=== PATIENT | female | born 1995 | race Caucasian/White ===

== ENCOUNTER 2021-09-26 10:21 | Outpatient (CLI) | payer MEDICAID, SELFPAY ==
--- NOTE | 2021-09-26 10:33 | XR_ITS ---
WS: [email or web address] Left hand, 2 views, 09/26/2021 Clinical Data: M06.9 - Rheumatoid arthritis, unspecified Comparison: None. Findings: No fractures or dislocations are seen. The soft tissues are unremarkable. The joint spaces are normal No periarticular demineralization or calcifications are seen. XR/XR hand LT 2V [id number] Impression: Negative left hand.
--- NOTE | 2021-09-26 10:33 | XR_ITS ---
WS: [email or web address] Right hand, 2 views, 09/26/2021 Clinical Data: M06.9 - Rheumatoid arthritis, unspecified Comparison: None. Findings: No fractures or dislocations are seen. The soft tissues are unremarkable. The joint space s are normal No periarticular demineralization or calcifications are seen. XR/XR hand RT 2V [id number] Impression: Negative right hand.
--- NOTE | 2021-09-26 10:33 | XR_ITS ---
WS: [email or web address] Right hip, AP and frog-leg views Clinical Data: M06.9 - Rheumatoid arthritis, unspecified Comparison: None. Findings: No fractures or dislocations are seen. The hip joint is intact. The soft tissues are not remarkable. The adjacent pelvis is normal. XR/XR hip RT 2-3V wo/w pel* [id number] Impression: Negative right hip. Tonnis classification: grade 0: normal radiographs
--- NOTE | 2021-09-26 10:33 | XR_ITS ---
WS: [email or web address] Left knee, AP and lateral views, 09/26/2021 Clinical Data: M06.9 - Rheumatoid arthritis, unspecified Comparison: None. Findings: No fractures or dislocations are seen. The joint spaces are normal. The patella is intact. The soft t issues are unremarkable. XR/XR knee LT 1-2V 23082 Impression: Negative left knee. Kellgren-Yobani Classification: grade 0 (none): definite absence of x-ray julisa nges of osteoarthritis
--- NOTE | 2021-09-26 10:33 | XR_ITS ---
WS: [email or web address] Right knee, 2 views, 09/26/2021 Clinical Data: M06.9 - Rheumatoid arthritis, unspecified Comparison: None. Findings: No fractures or dislocations are seen. The joint spaces are normal. The patella is intact. The soft t issues are unremarkable. XR/XR knee RT 1-2V [id number] Impression: Negative right knee. Kellgren-Yobani Classification: grade 0 (none): definite absence of x-ray julisa nges of osteoarthritis
--- NOTE | 2021-09-26 10:33 | XR_ITS ---
WS: [email or web address] Left hip, AP and frog leg views, 09/26/2021 Clinical Data: M06.9 - Rheumatoid arthritis, unspecified Comparison: None. Findings: No fractures or dislocations are seen. There is an acetabular lip. The left hip shows no erosion, scl erosis, narrowing or cyst formation.. The soft tissues are not remarkable. The adjacent pelvis is nor mal. The left SI joint and pubic symphysis are unremarkable. XR/XR hip LT 2-3V wo/w pel* [id number] Impression: Minimal osteoarthritis of the left hip. Tonnis classification: grade 1: sclerosis of femoral head and acetabulum or sli ght joint space narrowing or slight lipping at joint margins
[2021-09-26 11:26] LABS: Basophils # 0.1 10^3/uL (0.0-0.1); Basophils % 0.6 %; Eosinophils # 0.4 10^3/uL (0.0-0.8); Eosinophils % 3.2 %; Hematocrit 39.7 % (37.0-47.0); Hemoglobin 12.4 g/dL (11.5-15.3); Lymphocytes % 37.1 %; Mean Corpuscular HGB Conc 31.2 g/dL (30.0-36.0); Mean Corpuscular Hemoglobin 26.4 pg (28.0-34.0); Mean Corpuscular Volume 84.6 fl (81-99); Mean Platelet Volume 10.9 fL (7.4-10.4); Monocytes # 0.5 10^3/uL (0.2-0.9); Monocytes % 4.5 %; Neutrophils # 5.89 10^3/uL (1.8-7.7); Neutrophils % 54.4 %; Nucleated Red Blood Cells % 0 %; Platelet Count 351 10^3/cmm (130-400); Red Blood Count 4.69 10^6/uL (4.1-5.3); White Blood Count 10.8 10^3/uL (4.0-10.0)
[2021-09-26 11:32] LABS: Add Urine Microscopic? YES; Bilirubin Urine Neg (Negative); Blood Urine Neg (Negative); Glucose Urine UA Norm (Normal); Ketones Urine Negative (Negative); Leukocyte Esterase Urine 2+ (Negative); Nitrate Urine Negative (Negative); Protein Urine Neg (Negative); Specific Gravity, Urine 1.005 (1.005-1.030); Urine Appearance Clear (CLEAR); Urine Color Straw (Yellow); Urobilinogen Urine Norm (Negative); pH Urine 7 (5-7)
[2021-09-26 12:06] LABS: 25 Hydroxy Vitamin D 26 ng/mL (30-100); Alanine Aminotransferase 12 U/L (0-33); Alkaline Phosphatase 75 IU/L (35-105); Anion Gap 15.9 (5-19); Aspartate Amino Transferase 14 U/L (0-32); Blood Urea Nitrogen 10 mg/dL (6-20); C Reactive Protein 18.8 mg/L (0.0-4.9); Calcium 8.8 mg/dL (8.5-10.5); Carbon Dioxide 21 mmol/L (22-29); Chloride 104 mmol/L (98-107); Ferritin 73 ng/mL (15-150); Globulin 3.5 g/dL (1.3-4.6); Glucose 91 mg/dL (65-115); Iron 40 ug/dL (37-145); Osmolality Calculated 283 mOsm/kg (285-295); Potassium 3.9 mmol/L (3.5-5.1); Sodium 137 mmol/L (136-145); Thyroid Stimulating Hormone 1.58 uIU/mL (0.27-4.20); Total Bilirubin 0.2 mg/dL (0.15-1.2); Total Protein 7.5 g/dL (6.6-8.7)
[2021-09-26 12:20] LABS: Hepatitis B Core AB, Total Non-Reactive (Nonreactive); Hepatitis B Surface Antigen Non-Reactive (Nonreactive); Hepatitis C Virus Antibody Non-Reactive (Nonreactive)
[2021-09-26 12:32] LABS: RBC Urine 0-4 /hpf (0-2)
[2021-09-26 12:33] LABS: Bacteria Urine TRACE /hpf
[2021-09-26 12:34] LABS: Add Urine Culture? No
[2021-09-26 12:44] LABS: Squamous Epithelial Cell Urine 0-4 /hpf (0-5)
[2021-09-27 16:23] LABS: Cyclic Citrullinated Peptide <16 UNITS
[2021-09-27 19:26] LABS: Erythrocyte Sedimentation Rate 29 mm/hr (0-15)
[2021-09-28 16:42] LABS: Quantiferon Mitogen >10.00 IU/mL; Quantiferon Nil 0.11 IU/mL; Quantiferon Plus TB1 <0.00 IU/mL; Quantiferon Plus TB2 <0.00 IU/mL; Quantiferon TB Gold NEGATIVE (NEGATIVE)
[2021-10-01 14:03] LABS: Immunoglobulin A 350 mg/dL (47-310)
== END 2021-09-26 10:22 | disposition home or self-care (01) ==
PROVIDERS: PCP Family Medicine; Visit Provider Internal Medicine
DX: M06.9 Rheumatoid arthritis, unspecified (principal); M19.90 Unspecified osteoarthritis, unspecified site; Z11.59 Encounter for screening for other viral diseases; Z11.1 Encounter for screening for respiratory tuberculosis; Z87.891 Personal history of nicotine dependence
CPT/HCPCS: 36415; 73120; 73502; 73560; 80053; 81001; 82306; 82728; 82784; 83516; 83540; 84443; 85025; 85651; 86140; 86200; 86431; 86480; 86704; 86803; 87340; 99204

== ENCOUNTER → 2021-10-01 12:32 | Outpatient (BNVA) | payer MEDICAID, SELFPAY | PROVIDERS: PCP Family Medicine; Visit Provider Internal Medicine | DX: M05.9 Rheumatoid arthritis with rheumatoid factor, unspecified (principal); M19.90 Unspecified osteoarthritis, unspecified site; E55.9 Vitamin D deficiency, unspecified; N39.0 Urinary tract infection, site not specified | CPT/HCPCS: 99214 ==

== ENCOUNTER 2022-01-02 10:32 | Outpatient (CLI) | payer MEDICAID, SELFPAY ==
--- NOTE | 2022-01-02 10:37 | XR_ITS ---
WS: [email or web address] Right foot, 3 views, 01/02/2022 Clinical Data: RIGHT FOOT PAIN Comparison: None. Findings: No fractures or dislocations are seen. No bone destruction or erosion is noted. The joint spaces and soft tissues are normal. There is a small plantar spur. XR/XR foot RT min 3V* [id number] Impression: Negative right foot.
== END 2022-01-02 10:33 | disposition home or self-care (01) ==
LOC: RAD 10:35
PROVIDERS: PCP Family Medicine; Visit Provider Family Medicine
DX: M79.671 Pain in right foot (principal)
CPT/HCPCS: 73630

== ENCOUNTER → 2022-01-14 08:10 | Outpatient (BNVA) | payer MEDICAID, SELFPAY | PROVIDERS: PCP Family Medicine; Referring Provider Family Medicine; Visit Provider Podiatrist Foot & Ankle Surgery | DX: M79.671 Pain in right foot (principal) | CPT/HCPCS: 73630 ==

== ENCOUNTER 2022-01-14 11:18 | Outpatient (CLI) | payer MEDICAID, SELFPAY | END 2022-01-14 11:19 | disposition home or self-care (01) | LOC: SPT 11:18 | PROVIDERS: PCP Family Medicine; Visit Provider Podiatrist Foot & Ankle Surgery | DX: Z46.89 Encounter for fitting and adjustment of other specified devices (principal); S92.351D Displaced fracture of fifth metatarsal bone, right foot, subsequent encounter for fracture with routine healing; X58.XXXD Exposure to other specified factors, subsequent encounter | CPT/HCPCS: 97760; L4361 ==

== ENCOUNTER → 2022-01-21 10:29 | Outpatient (BNVA) | payer MEDICAID, SELFPAY | PROVIDERS: PCP Family Medicine; Visit Provider Internal Medicine | DX: M06.9 Rheumatoid arthritis, unspecified (principal); M16.12 Unilateral primary osteoarthritis, left hip; G62.9 Polyneuropathy, unspecified; Z79.899 Other long term (current) drug therapy; Z87.891 Personal history of nicotine dependence | CPT/HCPCS: 99214 ==

== ENCOUNTER 2022-01-21 11:44 | Outpatient (CLI) | payer MEDICAID, SELFPAY ==
[2022-01-21 12:36] LABS: Basophils # 0.1 10^3/uL (0.0-0.1); Basophils % 0.5 %; Eosinophils # 0.3 10^3/uL (0.0-0.8); Eosinophils % 2.6 %; Hematocrit 40.1 % (37.0-47.0); Hemoglobin 12.3 g/dL (11.5-15.3); Lymphocytes # 4.9 10^3/uL (0.8-4.8); Mean Corpuscular HGB Conc 30.7 g/dL (30.0-36.0); Mean Corpuscular Volume 87.9 fl (81-99); Mean Platelet Volume 10.6 fL (7.4-10.4); Monocytes # 0.5 10^3/uL (0.2-0.9); Monocytes % 4.6 %; Neutrophils # 5.13 10^3/uL (1.8-7.7); Neutrophils % 46.9 %; Nucleated Red Blood Cells % 0 %; Platelet Count 357 10^3/cmm (130-400); Red Blood Count 4.56 10^6/uL (4.1-5.3); Red Cell Distribution Width 13.3 % (12.1-15.1); White Blood Count 10.9 10^3/uL (4.0-10.0)
[2022-01-21 13:06] LABS: Erythrocyte Sedimentation Rate 51 mm/hr (0-15)
[2022-01-21 13:24] LABS: Alanine Aminotransferase 13 U/L (0-33); Albumin Level 4.2 g/dL (3.5-5.2); Alkaline Phosphatase 76 IU/L (35-105); Anion Gap 13.1 (5-19); Aspartate Amino Transferase 15 U/L (0-32); Blood Urea Nitrogen 9 mg/dL (6-20); C Reactive Protein 14.6 mg/L (0.0-4.9); Calcium 9.6 mg/dL (8.5-10.5); Carbon Dioxide 25 mmol/L (22-29); Chloride 104 mmol/L (98-107); Globulin 3.6 g/dL (1.3-4.6); Glucose 89 mg/dL (65-115); Osmolality Calculated 284 mOsm/kg (285-295); Potassium 4.1 mmol/L (3.5-5.1); Sodium 138 mmol/L (136-145); Thyroid Stimulating Hormone 2.28 uIU/mL (0.27-4.20); Total Bilirubin 0.2 mg/dL (0.15-1.2); Total Protein 7.8 g/dL (6.6-8.7); Vitamin B12 279 pg/mL (232-1245)
[2022-01-21 13:46] LABS: Slide Review Slide Review Perform
== END 2022-01-21 11:45 | disposition home or self-care (01) ==
LOC: LAB 11:46
PROVIDERS: PCP Family Medicine; Visit Provider Internal Medicine
DX: G62.9 Polyneuropathy, unspecified (principal); M79.671 Pain in right foot; N39.0 Urinary tract infection, site not specified; R79.89 Other specified abnormal findings of blood chemistry
CPT/HCPCS: 80053; 82607; 84443; 85025; 85651; 86140

== ENCOUNTER → 2022-01-29 08:11 | Outpatient (BNVA) | payer MEDICAID, SELFPAY | PROVIDERS: PCP Family Medicine; Visit Provider Podiatrist Foot & Ankle Surgery | DX: M79.671 Pain in right foot (principal) | CPT/HCPCS: 73630 ==

== ENCOUNTER → 2022-02-11 08:43 | Outpatient (BNVA) | payer MEDICAID, SELFPAY | PROVIDERS: PCP Family Medicine; Referring Provider Internal Medicine; Visit Provider Anesthesiology Pain Medicine | DX: M25.551 Pain in right hip (principal); M25.552 Pain in left hip; M54.16 Radiculopathy, lumbar region; M47.816 Spondylosis without myelopathy or radiculopathy, lumbar region; M79.604 Pain in right leg; M79.605 Pain in left leg; Z87.891 Personal history of nicotine dependence | CPT/HCPCS: 99205 ==

== ENCOUNTER → 2022-02-12 14:01 | Outpatient (BNVA) | payer MEDICAID, SELFPAY | PROVIDERS: PCP Family Medicine; Visit Provider Podiatrist Foot & Ankle Surgery | DX: S99.921A Unspecified injury of right foot, initial encounter (principal); X58.XXXA Exposure to other specified factors, initial encounter | CPT/HCPCS: 73630 ==

== ENCOUNTER 2022-03-13 09:15 | Outpatient (CLI) | payer MEDICAID, SELFPAY ==
[2022-03-13 09:55] LABS: Basophils % 0.3 %; Eosinophils # 0.3 10^3/uL (0.0-0.8); Hematocrit 40.3 % (37.0-47.0); Hemoglobin 12.5 g/dL (11.5-15.3); Lymphocytes # 3.7 10^3/uL (0.8-4.8); Lymphocytes % 38.2 %; Mean Corpuscular Hemoglobin 27.3 pg (28.0-34.0); Mean Platelet Volume 9.8 fL (7.4-10.4); Monocytes # 0.5 10^3/uL (0.2-0.9); Monocytes % 5.1 %; Neutrophils # 5.12 10^3/uL (1.8-7.7); Neutrophils % 53.2 %; Nucleated Red Blood Cells % 0 %; Platelet Count 358 10^3/cmm (130-400); Red Blood Count 4.58 10^6/uL (4.1-5.3); Red Cell Distribution Width 13.5 % (12.1-15.1); White Blood Count 9.6 10^3/uL (4.0-10.0)
[2022-03-13 10:00] LABS: Erythrocyte Sedimentation Rate 21 mm/hr (0-15)
[2022-03-13 10:23] LABS: Alanine Aminotransferase 38 U/L (0-33); Albumin Level 4.1 g/dL (3.5-5.2); Alkaline Phosphatase 78 IU/L (35-105); Anion Gap 13.4 (5-19); Aspartate Amino Transferase 30 U/L (0-32); Blood Urea Nitrogen 10 mg/dL (6-20); C Reactive Protein 22.2 mg/L (0.0-4.9); Calcium 8.5 mg/dL (8.5-10.5); Carbon Dioxide 25 mmol/L (22-29); Chloride 106 mmol/L (98-107); Globulin 3.9 g/dL (1.3-4.6); Glucose 98 mg/dL (65-115); Osmolality Calculated 289 mOsm/kg (285-295); Potassium 4.4 mmol/L (3.5-5.1); Sodium 140 mmol/L (136-145); Total Bilirubin 0.4 mg/dL (0.15-1.2)
== END 2022-03-13 09:16 | disposition home or self-care (01) ==
LOC: LAB 09:17
PROVIDERS: PCP Family Medicine; Visit Provider Internal Medicine
DX: M06.9 Rheumatoid arthritis, unspecified (principal); M19.90 Unspecified osteoarthritis, unspecified site; Z79.899 Other long term (current) drug therapy
CPT/HCPCS: 36415; 80053; 85025; 85651; 86140

== ENCOUNTER → 2022-03-18 10:50 | Outpatient (BNVA) | payer MEDICAID, SELFPAY | PROVIDERS: PCP Family Medicine; Visit Provider Internal Medicine | DX: M06.9 Rheumatoid arthritis, unspecified (principal); E55.9 Vitamin D deficiency, unspecified; R74.01 Elevation of levels of liver transaminase levels; Z79.899 Other long term (current) drug therapy; Z87.891 Personal history of nicotine dependence | CPT/HCPCS: 99214 ==

== ENCOUNTER 2022-03-28 12:03 | Outpatient (CLI) | payer MEDICAID, SELFPAY ==
--- NOTE | 2022-03-28 12:22 | XR_ITS ---
WS: [email or web address] XR abdomen 1V* [id number] REASON FOR EXAM: RUQ ABDOMINAL PAIN FINDINGS: Unremarkable bowel gas pattern. No free air or retroperitoneal air. No urinary tract calculi. No mass identified. XR/XR abdomen 1V* [id number] IMPRESSION: No acute abnormality identified.
== END 2022-03-28 12:04 | disposition home or self-care (01) ==
PROVIDERS: PCP Family Medicine; Visit Provider Family Medicine
DX: R10.11 Right upper quadrant pain (principal)
CPT/HCPCS: 74018

== ENCOUNTER 2022-03-28 12:46 | Emergency (ER) | payer MEDICAID, SELFPAY ==
[2022-03-28 13:15] VITALS: BP 136/75; PULSE 76; RESP 18; TEMP 37; O2SAT 99; BMI 54.0
[2022-03-28 14:54] VITALS: BP 115/75; PULSE 82; RESP 18; O2SAT 99
--- NOTE | 2022-03-28 15:05 | US_ITS ---
WS: [email or web address] RIGHT UPPER QUADRANT ULTRASOUND HISTORY: RUQ pain, nausea COMPARISON: 02/05/2011 Liver: 20.0 cm in length. Moderately enlarged liver. Low-attenuation throughout from hepatic steatosi s. No mass. The entire liver is difficult to visualize. Portal Vein: Normal hepatopetal flow with monophasic waveform. Gallbladder: Normally distended gallbladder with no stones or wall thickening. CBD: 0.5 cm Pancreas: Normal size and echogenicity. Right kidney: 11.8 cm in length. Normal size kidney. No hydronephrosis. Indeterminate for subcentimet er, nonobstructing lower pole renal calcification. Aorta and IVC: Unremarkable abdominal aorta and IVC. No ascites. US/US gall bladder [id number] IMPRESSION: 1. Limited evaluation due to patient's body habitus. 2. No cholelithiasis identified. 3. Moderate hepatic steatosis and hepatomegaly.
--- NOTE | 2022-03-28 15:06 | ED_ITS ---
HPI - Abdominal Pain General: Chief Complaint: Abdominal Pain Stated Complaint: Right ABD Pain Time Seen by Provider: 03/28/22 14:54 Source: patient Mode of arrival: ambulatory Limitations: no limitations History of Present Illness: Patient is a 26-year-old female presents to ED today with a complaint of right upper quadrant pain over the past 3 days. Patient states pain initially began and was fairly mild and intermittent but states over that time period it has become more constant and worsening in severity. Patient tells me pain is associated with nausea but she has not had any episodes of emesis. She states she did have multiple episodes of watery diarrhea yesterday but none since. No fevers. No urinary complaints. Previous abdominal surgeries. Patient states she does have a history of gallbladder disease runs in her family. Pain does not seem to be affected by eating. Denies urinary symptoms. MD elicited complaint: abdominal pain Onset (ago): day(s) Pain Consistency: constant Location: RUQ Severity: moderate Quality: sharp Radiation: none Migration to: no migration Exacerbating factors: movement Relieving factors: nothing Associated Symptoms: Reports nausea; Denies chills, dysuria, fever(s), heartburn, hematochezia, hematuria, hematemesis, melena and vomiting Related Data: Date of Last Menstrual Period: 03/03/22 Patient : No Review of Systems Const: Denies: fever(s), chills, body aches, fatigue or malaise Card: Denies: chest pain Resp: Denies: dyspnea GI: Reports: abdominal pain and nausea; Denies: vomiting, hematemesis, heartburn, hematochezia or melena : Denies: flank pain, difficulty voiding, dysuria or hematuria Musc: Denies: neck pain, back pain, extremity pain or joint pain Skin/Breast: Denies: rash Neuro: Denies: headache(s), numbness in extremities, weakness in extremities or sensory changes PFSH ED PFSH: Family History Grandfather Cancer Grandmother Cancer Mother Hyperlipidemia Hypertension Family/Other Rheumatoid arthritis Denies family history of Diabetes Lupus Heart attack Stroke Social History Smoking and tobacco status: former smoker Second hand smoke exposure: No Alcohol intake: former History of recent travel: No Female Reproductive History: Date of last menstrual period: 03/03/22 Physical Exam Const: COMMON NORMALS: no acute distress, patient oriented x3, no limitations and alert GENERAL APPEARANCE: cooperative NUTRITIONAL APPEARANCE: obese morbidly obese (BMI of 54) ORIENTATION/CONSCIOUSNESS: Yes awake, Yes oriented to person, Yes oriented to place and Yes oriented to time HENMT: COMMON NORMALS: normocephalic and atraumatic HEAD & SCALP: normocephalic and atraumatic Resp: COMMON NORMALS: normal respiratory effort and clear to auscultation bilaterally AUSCULTATION: clear to auscultation bilaterally Cardio: COMMON NORMALS: regular rate and regular rhythm RATE: regular rate RHYTHM: regular rhythm GI: COMMON NORMALS: Normal to inspection, nondistended, normoactive bowel ozzie nds present and Soft to palpation INSPECTION: Yes normal to inspection AUSCULTATION: Yes normoactive bowel sounds PALPATION: Yes Soft to palpation, Yes Tenderness to palpation present (GI) (RUQ radiating around into flank), No Guarding due to palpation present (GI) and No Rigid due to palpation OTHER: non-surgical exam; significantly limited exam secondary to morbid obesity status : BLADDER/KIDNEY EXAM: Yes CVA tenderness (very mild R) Back/Pelvis: COMMON NORMALS: thoracic and lumbar spine normal to inspection, no thoracic nor lumbar tenderness and thoraco-lumbar ROM normal GENERAL BACK: Yes CVA tenderness (very mild R) Extremity: COMMON NORMALS: normal to inspection Neuro: ZAHRA COMA SCALE: document GCS findings [place] coma scale eye opening: Spontaneous [place] coma scale verbal response: Orientated Zahra coma scale motor response: Obey commands Zahra coma scale total score: 15 COMMON NORMALS: patient oriented x3, moves all extremities, no focal motor deficits and no sensory deficits noted SENSORIUM/ORIENTATION: Yes alert, Yes oriented to person, Yes oriented to place and Yes oriented to time Skin: COMMON NORMALS: no rashes or lesions noted GENERAL SKIN EXAM: no rashes or lesions noted Course Vital Signs: Vital signs: Vital Signs Temperature 98.6 F 03/28/22 13:15 Pulse Rate 74 03/28/22 15:40 Respiratory Rate 18 03/28/22 15:40 Blood Pressure 116/73 03/28/22 15:40 Pulse Oximetry 99 03/28/22 15:40 MDM - Abdominal Pain Medical Decision Making Patient's blood work including LFTs are unremarkable. Evaluation of her gallbladder by US is limited secondary to body habitus but nothing to suggest gallbladder etiology at this time. She does have a fatty liver. UA showing hematuria. CT obtained to rule out kidney/proximal stone for etiology of her discomfort. She was found to have a 1.2cm R renal calculus-no obstruction. Unknown whether this could be the source of her discomfort. She is not really having any urinary symptoms at this time. UA doesn't look overly suspicious for infection-will culture. We will have her follow-up with urology. We also discussed the possible need for outpatient HIDA scan. Return to ED precautions elin carvajal. Lab Data : 03/28/22 15:16 03/28/22 15:16 Labs/Radiology: Radiology Impressions Gallbladder Ultrasound 03/28/22 15:05 IMPRESSION: 1. Limited evaluation due to patient's body habitus. 2. No cholelithiasis identified. 3. Moderate hepatic steatosis and hepatomegaly. Abdomen/Pelvis CT 03/28/22 15:51 IMPRESSION: 1. 12 mm nonobstructing right renal calculus. No hydronephrosis. 2. Additional findings, as above. Laboratory Results WBC 10.1 10^3/uL (4.0-10.0) H 03/28/22 15:16 RBC 4.59 10^6/uL (4.1-5.3) 03/28/22 15:16 Hgb 12.7 g/dL (11.5-15.3) 03/28/22 15:16 Hct 39.8 % (37.0-47.0) 03/28/22 15:16 MCV 86.7 fl (81-99) 03/28/22 15:16 MCH 27.7 pg (28.0-34.0) L 03/28/22 15:16 MCHC 31.9 g/dL (30.0-36.0) 03/28/22 15:16 RDW 13.7 % (12.1-15.1) 03/28/22 15:16 Plt Count 390 10^3/cmm (130-400) 03/28/22 15:16 MPV 10.5 fL (7.4-10.4) H 03/28/22 15:16 Neut % (Auto) 51.6 % 03/28/22 15:16 Lymph % (Auto) 40.9 % 03/28/22 15:16 [place] % (Auto) 4.3 % 03/28/22 15:16 Eos % (Auto) 2.4 % 03/28/22 15:16 Baso % (Auto) 0.6 % 03/28/22 15:16 Neut # (Auto) 5.21 10^3/uL (1.8-7.7) 03/28/22 15:16 Lymph # (Auto) 4.1 10^3/uL (0.8-4.8) 03/28/22 15:16 [place] # (Auto) 0.4 10^3/uL (0.2-0.9) 03/28/22 15:16 Eos # (Auto) 0.2 10^3/uL (0.0-0.8) 03/28/22 15:16 Baso # (Auto) 0.1 10^3/uL (0.0-0.1) 03/28/22 15:16 Nucleated RBC % (auto) 0 % 03/28/22 15:16 Nucleated RBCs # 0.0 /100WBC 03/28/22 15:16 Sodium 137 mmol/L (136-145) 03/28/22 15:16 Potassium 3.9 mmol/L (3.5-5.1) 03/28/22 15:16 Chloride 102 mmol/L (98-107) 03/28/22 15:16 Carbon Dioxide 23 mmol/L (22-29) 03/28/22 15:16 Anion Gap 15.9 (5-19) 03/28/22 15:16 BUN 9 mg/dL (6-20) 03/28/22 15:16 Creatinine 0.6 mg/dL (0.5-0.9) 03/28/22 15:16 GFR Calculation 119.0 mL/min (90-130) 03/28/22 15:16 Glucose 90 mg/dL (65-115) 03/28/22 15:16 Calculated Osmolality 282 mOsm/kg (285-295) L 03/28/22 15:16 Calcium 8.9 mg/dL (8.5-10.5) 03/28/22 15:16 Total Bilirubin 0.3 mg/dL (0.15-1.2) 03/28/22 15:16 AST 17 U/L (0-32) 03/28/22 15:16 ALT 15 U/L (0-33) 03/28/22 15:16 Alkaline Phosphatase 71 IU/L (35-105) 03/28/22 15:16 Total Protein 7.7 g/dL (6.6-8.7) 03/28/22 15:16 Albumin 4.2 g/dL (3.5-5.2) 03/28/22 15:16 Globulin 3.5 g/dL (1.3-4.6) 03/28/22 15:16 Lipase 22 U/L (13-60) 03/28/22 15:16 HCG, Qual Negative (Negative) 03/28/22 15:16 Urine Color Yellow (Yellow) 03/28/22 15:16 Urine Appearance Turbid (CLEAR) 03/28/22 15:16 Urine pH 7 (5-7) 03/28/22 15:16 Ur Specific Brewer 1.010 (1.005-1.030) 03/28/22 15:16 Urine Protein Neg (Negative) 03/28/22 15:16 Urine Glucose (UA) Norm (Normal) 03/28/22 15:16 Urine Ketones Negative (Negative) 03/28/22 15:16 Urine Blood 2+ (Negative) H 03/28/22 15:16 Urine Nitrate Negative (Negative) 03/28/22 15:16 Urine Bilirubin Neg (Negative) 03/28/22 15:16 Urine Urobilinogen Norm mg/dL (Negative) 03/28/22 15:16 Ur Leukocyte Esterase Trace (Negative) H 03/28/22 15:16 Urine RBC 0-4 /hpf (0-2) H 03/28/22 15:16 Urine WBC 5-10 /hpf (0-5) H 03/28/22 15:16 Ur Squamous Epith Cells 0-4 /hpf (0-5) H 03/28/22 15:16 Amorphous Sediment Not Reportable 03/28/22 15:16 Urine Bacteria 2+ /hpf (NONE) H 03/28/22 15:16 Urine Mucus 1+ /hpf 03/28/22 15:16 Discharge Plan Discharge Patient Disposition: Home Clinical Impression: Calculus of right kidney Condition: Stable Prescriptions: New tramadol 50 mg tablet 50 mg PO Q6H PRN (Reason: pain) Qty: 14 0RF ondansetron 4 mg tablet,disintegrating 4 mg PO Q8H PRN (Reason: nausea and vomiting) Qty: 14 0RF No Action topiramate [Topamax] 25 mg tablet 25 mg PO BID 0RF tizanidine 4 mg capsule 4 mg PO BID PRN0RF fexofenadine [Loyda Allergy] 180 mg tablet 180 mg PO DAILY 0RF albuterol sulfate 90 mcg/actuation HFA aerosol inhaler 1 inh inhalation QID 0RF venlafaxine 150 mg capsule,extended release 24hr 150 mg PO DAILY 0RF hydroxychloroquine 200 mg tablet 200 mg PO BID Qty: 60 3RF cholecalciferol (vitamin D3) 1,250 mcg (50,000 unit) capsule 50,000 unit PO .qweek Qty: 14 0RF fluticasone propion-salmeterol [Advair Diskus] 500-50 mcg/dose blister with device 1 inh inhalation BID 0RF (DME) LEN ly See Rx Instructions .Route .MEDSUPPLY Qty: 1 0RF Rx Instructions: As directed methotrexate sodium 2.5 mg tablet 12.5 mg PO .qweek Qty: 30 2RF cholecalciferol (vitamin D3) 50 mcg (2,000 unit) capsule 50 mcg PO DAILY Qty: 90 0RF folic acid 1 mg tablet 1 mg PO DAILY Qty: 90 0RF Discharge Orders: Discharge ED (Routine); Ordered 03/28/22 Ordered By: Tricia Sharpe Referrals: Duncan Raza MD [Primary Care Provider] - Patient Instructions: Kidney Stones (ED) Activity Restrictions/Additional Instructions: As discussed case management should set you up with a follow-up urology appointment for further evaluation of your right kidney stone. Need to return to the emergency department for severe or uncontrollable pain, repetitive episodes of vomiting or diarrhea, fevers greater than 100.4, severe flank pain or painful urination, or any other concerns you may have. Coding Level of Care Code ED Air Bag Buffer for Grabielg Fwd Exam Comprehensive
[2022-03-28 15:36] LABS: Basophils # 0.1 10^3/uL (0.0-0.1); Basophils % 0.6 %; Eosinophils # 0.2 10^3/uL (0.0-0.8); Eosinophils % 2.4 %; Hematocrit 39.8 % (37.0-47.0); Hemoglobin 12.7 g/dL (11.5-15.3); Lymphocytes # 4.1 10^3/uL (0.8-4.8); Lymphocytes % 40.9 %; Mean Corpuscular HGB Conc 31.9 g/dL (30.0-36.0); Mean Corpuscular Hemoglobin 27.7 pg (28.0-34.0); Mean Corpuscular Volume 86.7 fl (81-99); Mean Platelet Volume 10.5 fL (7.4-10.4); Monocytes # 0.4 10^3/uL (0.2-0.9); Monocytes % 4.3 %; Neutrophils # 5.21 10^3/uL (1.8-7.7); Neutrophils % 51.6 %; Nucleated Red Blood Cells % 0 %; Platelet Count 390 10^3/cmm (130-400); Red Blood Count 4.59 10^6/uL (4.1-5.3); Red Cell Distribution Width 13.7 % (12.1-15.1); White Blood Count 10.1 10^3/uL (4.0-10.0)
[2022-03-28] MEDS: ondansetron 2 mg/ML SDV 2 mL 4 MG IVP (15:39)
[2022-03-28 15:40] VITALS: BP 116/73; PULSE 74; RESP 18; O2SAT 99
[2022-03-28] MEDS: sodium chloride 0.9% 1,000 ML 999 ML IV (15:40)
[2022-03-28 15:48] LABS: Add Urine Microscopic? YES; Bilirubin Urine Neg (Negative); Blood Urine 2+ (Negative); Glucose Urine UA Norm (Normal); Ketones Urine Negative (Negative); Leukocyte Esterase Urine Trace (Negative); Nitrate Urine Negative (Negative); Protein Urine Neg (Negative); Urine Appearance Turbid (CLEAR); Urine Color Yellow (Yellow); Urobilinogen Urine Norm (Negative); pH Urine 7 (5-7)
[2022-03-28 15:49] LABS: Add Urine Culture? Yes; Bacteria Urine 2+ /hpf; Mucus Urine 1+ /hpf; RBC Urine 0-4 /hpf (0-2); Squamous Epithelial Cell Urine 0-4 /hpf (0-5)
--- NOTE | 2022-03-28 15:51 | CTR_ITS ---
PROCEDURE INFORMATION: Exam: CT Abdomen And Pelvis Without Contrast Exam date and time: 03/28/2022 4:19 PM Age: 26 years old Clinical indication: Abdominal pain; Acute; Additional info: Ruq pain; Poss kidney stone on US; Hematuria TECHNIQUE: Imaging protocol: Computed tomography of the abdomen and pelvis without contrast. Axial, coronal and sagittal reformatted images were created and reviewed. Radiation optimization: All CT scans at this facility use at least one of these dose optimization techniques: automated exposure control; mA and/or kV adjustment per patient size (includes targeted exams where dose is matched to clinical indication); or iterative reconstruction. COMPARISON: CR XR abdomen 1V* [id number] 03/28/2022 12:27 PM RADIATION DOSE METRICS: Total DLP (mGy-cm): 2108.96 FINDINGS: Liver: Mild hepatomegaly. Mild hepatic steatosis. Gallbladder and bile ducts: No radiodense gallstones. No biliary ductal dilatation. Pancreas: Unremarkable. Spleen: Unremarkable. Adrenal glands: Normal. No mass. Kidneys and ureters: 12 mm nonobstructing right renal calculus. No hydronephrosis. Stomach and bowel: Scattered colonic diverticula without evidence of diverticulitis. No obstruction. No bowel wall thickening. No pneumatosis. Appendix: Normal. Intraperitoneal space: No free fluid. No organized fluid collection. No free air. Vasculature: Unremarkable. No aneurysm. Lymph nodes: No pathologically enlarged lymph nodes. Urinary bladder: Unremarkable as visualized. Reproductive: Unremarkable. Bones/joints: No acute osseous abnormality. Soft tissues: Small, fat containing umbilical hernia. CT/CT kidney stone [id number] IMPRESSION: 1. 12 mm nonobstructing right renal calculus. No hydronephrosis. 2. Additional findings, as above.
[2022-03-28 15:56] LABS: HCG, Serum Qual Negative (Negative)
[2022-03-28 15:58] LABS: Alanine Aminotransferase 15 U/L (0-33); Albumin Level 4.2 g/dL (3.5-5.2); Alkaline Phosphatase 71 IU/L (35-105); Aspartate Amino Transferase 17 U/L (0-32); Blood Urea Nitrogen 9 mg/dL (6-20); Calcium 8.9 mg/dL (8.5-10.5); Carbon Dioxide 23 mmol/L (22-29); Chloride 102 mmol/L (98-107); Globulin 3.5 g/dL (1.3-4.6); Glucose 90 mg/dL (65-115); Lipase 22 U/L (13-60); Osmolality Calculated 282 mOsm/kg (285-295); Sodium 137 mmol/L (136-145); Total Bilirubin 0.3 mg/dL (0.15-1.2); Total Protein 7.7 g/dL (6.6-8.7)
[2022-03-28 16:05] LABS: Anion Gap 15.9 (5-19); Potassium 3.9 mmol/L (3.5-5.1)
--- NOTE | 2022-03-29 09:49 | DCPLANNER ---
Addendum entered by Elvira Smalls 04/04/22 14:06: Patient had a follow up appointment scheduled for 04.04.22 with urology - patient did attend appointment. Original Note: manager performance had message to schedule a follow up appointment for patient with urology. manager performance sent patients information to the front office staff at urology. Patients information will be printed and reviewed. Clinic will call patient with appointment information.
== END 2022-03-28 17:51 | disposition home or self-care (01) ==
PROVIDERS: Emergency Provider Physician Assistant; PCP Family Medicine
DX: N20.0 Calculus of kidney (principal); K76.0 Fatty (change of) liver, not elsewhere classified; Z87.891 Personal history of nicotine dependence
CPT/HCPCS: 74176; 76705; 80053; 81001; 83690; 84703; 85025; 87077; 87086; 87186; 96361; 96374; 99284; J2405; J7030

== ENCOUNTER 2022-04-04 09:49 | Outpatient (CLI) | payer MEDICAID, SELFPAY ==
--- NOTE | 2022-04-04 09:59 | XR_ITS ---
WS: [email or web address] KUB, AP view, 04/04/2022 Clinical Data: Calculus of right Kidney Comparison: KUB, 03/28/2022. Findings: No abnormal intraabdominal masses are seen. There is no dilatated small bowel or evidence of obstruct ion. Bowel gas and fecal material obscure detail over the right kidney and the left kidney. There is a 1.6 cm density overlying the right kidney in the middle of the fecal material and the right 12th rib wh ich could represent a central right renal calculus. XR/XR KUB [id number] Impression: Possible right renal calculus.
== END 2022-04-04 09:50 | disposition home or self-care (01) ==
LOC: RAD 09:51
PROVIDERS: PCP Family Medicine; Visit Provider Nurse Practitioner Family
DX: N20.0 Calculus of kidney (principal); N39.0 Urinary tract infection, site not specified
CPT/HCPCS: 74018; 81003; 87077; 87086; 87186; 99203

== ENCOUNTER → 2022-04-08 09:55 | Outpatient (BNVA) | payer MEDICAID, SELFPAY | PROVIDERS: PCP Family Medicine; Visit Provider Surgery | DX: R10.11 Right upper quadrant pain (principal); K76.0 Fatty (change of) liver, not elsewhere classified | CPT/HCPCS: 99203 ==

== ENCOUNTER → 2022-04-16 12:49 | Outpatient (BNVA) | payer MEDICAID, SELFPAY | PROVIDERS: PCP Family Medicine; Visit Provider Podiatrist Foot & Ankle Surgery | DX: M21.621 Bunionette of right foot (principal); M77.51 Other enthesopathy of right foot and ankle; M79.671 Pain in right foot | CPT/HCPCS: 73630; 99213; 99214 ==

== ENCOUNTER → 2022-04-19 14:52 | Outpatient (BNVA) | payer MEDICAID, SELFPAY | PROVIDERS: PCP Family Medicine; Referring Provider Internal Medicine; Visit Provider Specialist | DX: G62.9 Polyneuropathy, unspecified (principal); G58.7 Mononeuritis multiplex; M54.2 Cervicalgia; E66.01 Morbid (severe) obesity due to excess calories; Z68.43 Body mass index [BMI] 50.0-59.9, adult; M06.9 Rheumatoid arthritis, unspecified; R26.89 Other abnormalities of gait and mobility | CPT/HCPCS: 99204 ==

== ENCOUNTER → 2022-04-22 09:36 | Outpatient (BNVA) | payer MEDICAID, SELFPAY | PROVIDERS: PCP Family Medicine; Referring Provider Internal Medicine; Visit Provider Specialist | DX: R20.0 Anesthesia of skin (principal); R20.2 Paresthesia of skin | CPT/HCPCS: 95910; 95912 ==

== ENCOUNTER 2022-04-24 12:30 | Outpatient (CLI) | payer MEDICAID, SELFPAY ==
[2022-04-24 12:57] LABS: Basophils % 0.5 %; Eosinophils # 0.4 10^3/uL (0.0-0.8); Eosinophils % 4.6 %; Hematocrit 38.1 % (37.0-47.0); Hemoglobin 12.3 g/dL (11.5-15.3); Lymphocytes # 3.8 10^3/uL (0.8-4.8); Lymphocytes % 49.1 %; Mean Corpuscular HGB Conc 32.3 g/dL (30.0-36.0); Mean Corpuscular Hemoglobin 27.5 pg (28.0-34.0); Mean Platelet Volume 10.6 fL (7.4-10.4); Monocytes # 0.4 10^3/uL (0.2-0.9); Neutrophils # 3.17 10^3/uL (1.8-7.7); Neutrophils % 40.5 %; Nucleated Red Blood Cells % 0 %; Platelet Count 341 10^3/cmm (130-400); Red Blood Count 4.48 10^6/uL (4.1-5.3); Red Cell Distribution Width 14.3 % (12.1-15.1); White Blood Count 7.8 10^3/uL (4.0-10.0)
[2022-04-24 13:43] LABS: Alanine Aminotransferase 15 U/L (0-33); Albumin Level 4.3 g/dL (3.5-5.2); Alkaline Phosphatase 65 IU/L (35-105); Anion Gap 13.7 (5-19); Aspartate Amino Transferase 16 U/L (0-32); Blood Urea Nitrogen 11 mg/dL (6-20); Calcium 9.1 mg/dL (8.5-10.5); Carbon Dioxide 24 mmol/L (22-29); Chloride 106 mmol/L (98-107); Glucose 93 mg/dL (65-115); Osmolality Calculated 289 mOsm/kg (285-295); Potassium 3.7 mmol/L (3.5-5.1); Sodium 140 mmol/L (136-145); Total Bilirubin 0.3 mg/dL (0.15-1.2); Total Protein 7.3 g/dL (6.6-8.7)
--- NOTE | 2022-04-24 14:12 | XR_ITS ---
WS: [email or web address] Exam: XR lumbar spine 2-3V* [id number] Date/Time of Exam: 04/24/2022 2:13 PM Reason For Exam: BACK PAIN, LUMBAR, WITH RADICULOPATHY, LUMBAR DISC HERNIATIO No acute fracture or dislocation. Disc spaces are preserved. Posterior elements are intact. Mild levo scoliosis. 2 calcifications are seen in the region of the right kidney and apparently represent known renal stones. XR/XR lumbar spine 2-3V* [id number] IMPRESSION: 1. Slight levoscoliosis of the lumbar spine otherwise negative study. 2. Right renal lithiasis.
== END 2022-04-24 12:31 | disposition home or self-care (01) ==
LOC: LAB 12:34
PROVIDERS: Internal Medicine; PCP Family Medicine; Visit Provider Family Medicine
DX: M51.16 Intervertebral disc disorders with radiculopathy, lumbar region (principal); M06.9 Rheumatoid arthritis, unspecified; R79.89 Other specified abnormal findings of blood chemistry
CPT/HCPCS: 72100; 80053; 85025

== ENCOUNTER 2022-05-09 09:45 | Outpatient (CLI) | payer MEDICAID, SELFPAY ==
--- NOTE | 2022-05-09 08:57 | NM_ITS ---
WS: [email or web address] NUCLEAR MEDICINE HIDA SCAN WITH GALLBLADDER EJECTION FRACTION HISTORY: ABDOMINAL PAIN RUQ COMPARISON: 03/28/2022 TECHNIQUE: The patient was intravenously injected with 7.5 mCi of TC99m Mebrofenin. Immediate imaging over the right upper quadrant was followed by 5 minute image and additional images for a total of 90 minutes. Normal uptake of radiotracer throughout the liver. Activity identified in the gallbladder at 60 minutes and much better distended at 90 minutes. Activity in the proximal small bowel was seen by 30 minutes. Good washout of the radiotracer from the liver by 60 minutes. The patient then drank 8 ounces of Ensure Plus. Ejection fraction at 90 minutes was 65%. Normal GB ej ection fraction is 35-75%. Post fatty meal symptoms: None. NM/NM hepatobiliary w phar* [id number] IMPRESSION: 1. Normal HIDA scan. 2. Normal gallbladder ejection fraction.
== END 2022-05-09 09:46 | disposition home or self-care (01) ==
LOC: RAD 09:47
PROVIDERS: PCP Family Medicine; Visit Provider Family Medicine
DX: R10.11 Right upper quadrant pain (principal)
CPT/HCPCS: 78227; A9537

== ENCOUNTER 2022-05-22 15:12 | Outpatient (RCR) | payer MEDICAID, SELFPAY | END 2022-06-16 23:59 | disposition home or self-care (01) | LOC: SPT 15:12 | PROVIDERS: PCP Family Medicine; Referring Provider Family Medicine; Visit Provider Family Medicine | DX: M54.16 Radiculopathy, lumbar region (principal) | CPT/HCPCS: 97032; 97110; 97161 ==

== ENCOUNTER → 2022-05-27 14:51 | Outpatient (BNVA) | payer MEDICAID, SELFPAY | PROVIDERS: PCP Family Medicine; Visit Provider Podiatrist Foot & Ankle Surgery | DX: M21.621 Bunionette of right foot (principal); M79.671 Pain in right foot; M77.51 Other enthesopathy of right foot and ankle | CPT/HCPCS: 20600 ==

== ENCOUNTER 2022-06-06 11:28 | Outpatient (CLI) | payer MEDICAID, SELFPAY ==
--- NOTE | 2022-06-06 11:45 | MR_ITS ---
WS: [email or web address] MRI CERVICAL SPINE NONCONTRAST HISTORY: G62.9 - Polyneuropathy, unspecified COMPARISON: None available. Technique: Multiplanar, multisequence noncontrast imaging of the cervical spine. Mild straightening of the normal cervical lordosis is probably positional or due to spasm. Normal marrow signal. No fractures. Disc spaces are well-maintained. Signal within the cervical cord is normal. Visualized posterior fossa is unremarkable. Craniocervical junction, C1 and C2 relationship, odontoid process and soft tissues are normal. C2-C3: Normal. C3-C4: Normal. C4-C5: Normal. C5-C6: Normal. C6-C7: Mild disc bulge. No stenosis or disc protrusion. C7-T1: Normal. Paraspinal soft tissue are normal. Normal bilateral cervical chain lymph nodes measure up to 9 mm in diameter. MR/MR cervical spin wo con* [id number] IMPRESSION: Normal MRI C-spine.
== END 2022-06-06 11:29 | disposition home or self-care (01) ==
PROVIDERS: PCP Family Medicine; Visit Provider Specialist
DX: G62.9 Polyneuropathy, unspecified (principal)
CPT/HCPCS: 72141

== ENCOUNTER 2022-06-17 06:00 | Outpatient (RCR) | payer MEDICAID, SELFPAY | END 2022-07-17 23:59 | disposition home or self-care (01) | LOC: SPT 06:00 | PROVIDERS: PCP Family Medicine; Referring Provider Family Medicine; Visit Provider Family Medicine | DX: M54.9 Dorsalgia, unspecified (principal); M54.16 Radiculopathy, lumbar region | CPT/HCPCS: 97032; 97110; G0283 ==

== ENCOUNTER 2022-06-17 11:51 | Outpatient (CLI) | payer MEDICAID, SELFPAY ==
--- NOTE | 2022-06-17 12:00 | XR_ITS ---
WS: [email or web address] KUB, AP view, 06/17/2022. Clinical Data: CALCULUS OF RIGHT KIDNEY Comparison: KUB, 04/04/2022. Findings: No abnormal intraabdominal masses are seen. There is no dilatated small bowel or evidence of obstruct ion. There are calcifications overlying the midportion of the right kidney. XR/XR KUB [id number] Impression: No change in probable right renal calcifications.
== END 2022-06-17 11:52 | disposition home or self-care (01) ==
LOC: RAD 11:52
PROVIDERS: PCP Family Medicine; Visit Provider Urology
DX: N39.0 Urinary tract infection, site not specified (principal); N20.0 Calculus of kidney
CPT/HCPCS: 74018; 81003; 99213

== ENCOUNTER 2022-07-08 08:07 | Outpatient (CLI) | payer MEDICAID, SELFPAY ==
[2022-07-08 08:28] LABS: Basophils % 0.4 %; Eosinophils # 0.3 10^3/uL (0.0-0.8); Eosinophils % 3.5 %; Hematocrit 39.7 % (37.0-47.0); Hemoglobin 12.4 g/dL (11.5-15.3); Lymphocytes # 3.6 10^3/uL (0.8-4.8); Lymphocytes % 42.9 %; Mean Corpuscular HGB Conc 31.2 g/dL (30.0-36.0); Mean Corpuscular Hemoglobin 27.9 pg (28.0-34.0); Mean Corpuscular Volume 89.4 fl (81-99); Mean Platelet Volume 10.6 fL (7.4-10.4); Monocytes # 0.4 10^3/uL (0.2-0.9); Neutrophils # 4.03 10^3/uL (1.8-7.7); Nucleated Red Blood Cells % 0 %; Platelet Count 325 10^3/cmm (130-400); Red Blood Count 4.44 10^6/uL (4.1-5.3); Red Cell Distribution Width 13.6 % (12.1-15.1); White Blood Count 8.4 10^3/uL (4.0-10.0)
[2022-07-08 08:33] LABS: Erythrocyte Sedimentation Rate 25 mm/hr (0-15)
[2022-07-08 08:55] LABS: Alanine Aminotransferase 16 U/L (0-33); Alkaline Phosphatase 64 U/L (35-105); Anion Gap 13.2 (5-19); Aspartate Amino Transferase 12 U/L (0-32); Blood Urea Nitrogen 13 mg/dL (6-20); C Reactive Protein 6.7 mg/L (0.0-4.9); Calcium 8.9 mg/dL (8.5-10.5); Carbon Dioxide 25 mmol/L (22-29); Chloride 105 mmol/L (98-107); Globulin 3.5 g/dL (1.3-4.6); Glomerular Filtration Rate 146.9 mL/min (90-130); Glucose 89 mg/dL (65-115); Osmolality Calculated 288 mOsm/kg (285-295); Potassium 4.2 mmol/L (3.5-5.1); Sodium 139 mmol/L (136-145); Total Bilirubin 0.2 mg/dL (0.15-1.2); Total Protein 7.5 g/dL (6.6-8.7)
== END 2022-07-08 08:08 | disposition home or self-care (01) ==
LOC: LAB 08:10
PROVIDERS: PCP Family Medicine; Visit Provider Internal Medicine
DX: M06.9 Rheumatoid arthritis, unspecified (principal); R74.01 Elevation of levels of liver transaminase levels; Z79.899 Other long term (current) drug therapy
CPT/HCPCS: 36415; 80053; 85025; 85651; 86140

== ENCOUNTER → 2022-07-10 08:36 | Outpatient (BNVA) | payer MEDICAID, SELFPAY | PROVIDERS: PCP Family Medicine; Visit Provider Surgery | DX: R19.7 Diarrhea, unspecified (principal); K76.0 Fatty (change of) liver, not elsewhere classified; M06.9 Rheumatoid arthritis, unspecified | CPT/HCPCS: 99213 ==

== ENCOUNTER 2022-07-21 16:02 | Emergency (ER) | payer MEDICAID, SELFPAY ==
[2022-07-21 16:25] VITALS: BP 155/96; PULSE 66; RESP 18; TEMP 36.6; O2SAT 98; BMI 50.4
[2022-07-21] MEDS: lidocaine 2% viscous 15 mL UDC 2 ML MUCOUS MEM (19:37)
--- NOTE | 2022-07-21 19:53 | ED_ITS ---
HPI - Dental/Oral General: Chief complaint: Dental/Oral Stated complaint: dry socket Time Seen by Provider: 07/21/22 18:55 History of Present Illness: 26 yo female patient presents to ER with right sided upper and lower dental pain post extration on Pt states the pain has not improved and she needs some relief. Pt denies any fever. Pt states it hurts to chew. Pt denies any difficulty swallowing. pt is currently on antibitibiotics and states she has been doing salt rinses as advised Associated symptoms: Denies ear or mastoid pain, fever(s), odynophagia or tongue swelling Review of Systems Const: Denies: fever(s), chills, body aches, change in appetite, change in weight, fatigue, malaise or diaphoresis Eyes: Denies: change in vision, blurry vision, blind spots, photophobia, eye discomfort, eye discharge, eye redness, floaters or seeing flashes ENMT: Denies: throat pain, uvular edema, enlarged tonsils, odynophagia, hoarseness, mouth pain, swelling of lips/tongue, oral sores, bleeding gums, dry mouth, ear or mastoid pain, ear discharge, change in hearing, tinnitus, disequilibrium, nasal discharge, nasal congestion, post nasal drip or sinus pain Card: Denies: chest pain, palpitations, irregular heart rhythm, edema, swelling of feet/ankles, lightheadedness, syncope, pre-syncope, dyspnea on exertion, orthopnea, leg pain with exertion or acrocyanosis Resp: Denies: dyspnea, productive cough, non-productive cough, wheezing, str idor, pain on inspiration, change in phlegm color, hemoptysis or chest congestion GI: Denies: abdominal pain, nausea, vomiting, hematemesis, dysphagia, diarrhea, constipation, GI cramping, change in bowel habits or rectal pain : Denies: flank pain, difficulty voiding, dysuria, urinary frequency, urinary urgency, urinary hesitancy or hematuria Musc: Denies: neck pain, back pain, extremity pain, extremity swelling, joint pain, joint swelling, joint redness, joint warmth or deformity Skin/Breast: Denies: rash, pruritus, erythema, sores, new lesions, changes in skin color or dry skin Neuro: Denies: headache(s), numbness in extremities, weakness in extremities, sensory changes, lack of coordination, difficulty walking, frequent falls, dizziness, vertigo, confusion, behavioral changes, Slurred speech present, difficulty communicating thoughts or seizure-like activity Psych: Denies: anxiety, depression, suicidal ideation or homicidal ideation Endo: Denies: polyuria, polydipsia, tired all the time, cold intolerance, excessive sweating, flushing, hot flashes or heat intolerance Constantino/Lymph: Denies: easy bruising, easy bleeding, petechiae, purpura, enlarged lymph nodes or tender lymph nodes All/Imm: Denies: urticaria, throat swelling, tongue swelling, facial swelling, acute wheezing or itchy eyes PFSH ED PFSH: Medical History Recurrent UTI Surgical History History of tonsillectomy and adenoidectomy Family History Grandfather Cancer Grandmother Cancer Mother Hyperlipidemia Hypertension Family/Other Rheumatoid arthritis Denies family history of Diabetes Lupus Heart attack Stroke Social History Smoking and tobacco status: former smoker Second hand smoke exposure: No Alcohol intake: never Household members: spouse Marital status: Current occupational status: employed History of recent travel: No Female Reproductive History: Date of last menstrual period: 03/03/22 Physical Exam Const: COMMON NORMALS: no acute distress, average body habitus, patient oriented x3, no limitations, healthy appearing, alert and well nourished HENMT: MOUTH: Normal oral and palatal mucosa present, lip normal, tongue normal and Normal salivary glands and ducts present; no muffled voice, tongue not abnormal, no trismus and no restricted motion TEETH & GINGIVA: Yes other (there is upper and lower tooth extractions that are without evidence of inf) THROAT: no uvular edema Resp: COMMON NORMALS: normal respiratory effort, No retractions and No use of accessory muscles Cardio: COMMON NORMALS: regular rate and regular rhythm RATE: regular rate RHYTHM: regular rhythm Neuro: COMMON NORMALS: patient oriented x3 SENSORIUM/ORIENTATION: Yes alert Course Vital Signs: Vital signs: Vital Signs Temperature 98 F 09/04/22 16:25 Pulse Rate 66 07/21/22 16:25 Respiratory Rate 18 07/21/22 16:25 Blood Pressure 155/96 07/21/22 16:25 Pulse Oximetry 98 07/21/22 16:25 Oxygen Delivery Me thod 07/21/22 16:25 MDM - Dental/Oral Medical Decision Making Patient is well appearing non toxic and in no acute distress. 26 yo female patient presents to ER with right sided upper and lower dental pain post extration on Pt states the pain has not improved and she needs some relief. Pt denies any fever. Pt states it hurts to chew. Pt denies any difficulty swallowing. pt is currently on antibitibiotics and states she has been doing salt rinses as advised There is no evidence of dental infection or abscess extractions appear to be healing without issue. I did apply viscous lidocaine and gauze packing to extraction sites and this did give patient relief. Pt to f/u with dentist next week Differential Diagnosis Likely gingival abscess, dental caries and dental abscess Discharge Plan Discharge Patient Disposition: Home Clinical Impression: Pain, dental Condition: Stable Prescriptions: New Lidocaine Viscous 2 % solution 1 applic mucous membrane BID Qty: 3 0RF No Action topiramate [Topamax] 25 mg tablet 25 mg PO BID tizanidine 4 mg capsule 4 mg PO BID PRN fexofenadine [Loyda Allergy] 180 mg tablet 180 mg PO DAILY albuterol sulfate 90 mcg/actuation HFA aerosol inhaler 1 inh inhalation QID venlafaxine 150 mg capsule,extended release 24hr 150 mg PO DAILY cholecalciferol (vitamin D3) 1,250 mcg (50,000 unit) capsule 50,000 unit PO .qweek Qty: 14 0RF fluticasone propion-salmeterol [Advair Diskus] 500-50 mcg/dose blister with device 1 inh inhalation BID diclofenac-kinesiology tape 1.5 % kit See Rx Instructions topical .COMPLEX Rx Instructions: apply 40 drps to single knee 4 times daily; tape as directed topical methotrexate sodium 2.5 mg tablet 15 mg PO .qweek Qty: 30 2RF diclofenac sodium [Voltaren Arthritis Pain] 1 % gel 4 g topical QID Qty: 100 3RF Rx Instructions: apply to single knee, ankle, foot; for foot includes sole/toes/top of foot folic acid 1 mg tablet 2 mg PO DAILY Qty: 180 0RF doxycycline hyclate 100 mg capsule 100 mg PO BID Qty: 60 2RF peg 3350-electrolytes [Golytely] [id number] -5.86 gram recon soln 240 ml PO Q10M Qty: 4000 0RF Rx Instructions: until fecal effluent is clear Discharge Orders: Discharge ED (Routine); Ordered 07/21/22 Ordered By: Lisa Barksdale Referrals: Duncan Raza MD [Primary Care Provider] - Discharge Diet: Advance as tolerated Discharge Activity: Increase activity as tolerated Patient Instructions: Opioid Safety Activity Restrictions/Additional Instructions: Use medications as directed Continue with salt rinses Follow up with dentist Coding Level of Care Code ED Decision Support Analyst for Brittany Barragan
[2022-07-21 20:09] VITALS: BP 155/96; PULSE 66; RESP 18; TEMP 36.6; O2SAT 98
== END 2022-07-21 20:10 | disposition home or self-care (01) ==
PROVIDERS: Emergency Provider Registered Nurse; PCP Family Medicine
DX: K08.89 Other specified disorders of teeth and supporting structures (principal); Z87.891 Personal history of nicotine dependence
CPT/HCPCS: 99283

== ENCOUNTER 2022-07-30 | Outpatient (RCR) | payer MEDICAID, SELFPAY | END 2022-08-16 23:59 | disposition home or self-care (01) | LOC: SPT | PROVIDERS: PCP Family Medicine; Referring Provider Family Medicine; Visit Provider Family Medicine | DX: M54.50 Low back pain, unspecified (principal); G89.29 Other chronic pain; M54.16 Radiculopathy, lumbar region | CPT/HCPCS: 97110 ==

== ENCOUNTER 2022-08-09 09:31 | Emergency (ER) | payer MEDICAID, SELFPAY ==
[2022-08-09 09:45] VITALS: BMI 51.7
[2022-08-09 09:47] VITALS: BP 129/84; PULSE 69; RESP 18; TEMP 36.4; O2SAT 99
--- NOTE | 2022-08-09 10:01 | ED_ITS ---
Documented by User: Bonita Wiley PA-C 08/09/22 11:53 HPI - Abdominal Pain General: Chief Complaint: Abdominal Pain Stated Complaint: right side pain Time Seen by Provider: 08/09/22 09:58 Source: patient Mode of arrival: ambulatory Limitations: no limitations History of Present Illness: 27-year-old female presents to the ER today for abdominal pain that began about 7:30 this morning. Patient reports it was a sudden onset and it is a sharp constant pain. Patient reports the pain is worse with movement. She reports this pain is in the right lower quadrant. She reports walking makes it worse. Patient reports nausea associated with the pain. She reports normal bowel movements. Patient reports last menstrual period was on 9 2. Patient does not have a history of a tubal however reports her had a vasectomy. Patient reports regular periods and bowel move ments in the last little bit. Patient reports the nausea just darted with the pain. She denies any other symptoms at this time. Related Data: Date of Last Menstrual Period: 07/19/22 Review of Systems General: Reports: 10 or more systems reviewed and unremarkable except in HPI and below PFSH ED PFSH: Medical History Recurrent UTI Surgical History History of tonsillectomy and adenoidectomy Family History Grandfather Cancer Grandmother Cancer Mother Hyperlipidemia Hypertension Family/Other Rheumatoid arthritis Denies family history of Diabetes Lupus Heart attack Stroke Social History Smoking and tobacco status: former smoker Second hand smoke exposure: No Alcohol intake: never Household members: spouse Marital status: Current occupational status: employed History of recent travel: No Female Reproductive History: Date of last menstrual period: 07/19/22 Physical Exam Const: COMMON NORMALS: average body habitus, patient oriented x3, no limitations, healthy appearing, alert and well nourished OTHER: appears uncomfortable HENMT: COMMON NORMALS: normocephalic, atraumatic, external ears normal, Normal external nose present and Normal nasal mucous membranes and turbinates present HEAD & SCALP: normocephalic and atraumatic NOSE: Normal external nose present and Normal nasal mucous membranes and turbinates present EXTERNAL EAR: Yes external ears normal Eye: COMMON NORMALS: conjunctivae normal CONJUNCTIVA: Yes conjunctivae normal Neck/C-Spine: COMMON NORMALS: full ROM and no lymphadenopathy Resp: COMMON NORMALS: normal respiratory effort, No retractions and clear to auscultation bilaterally AUSCULTATION: clear to auscultation bilaterally Cardio: COMMON NORMALS: regular rate, regular rhythm and No murmurs present (Cardio) RATE: regular rate RHYTHM: regular rhythm GI: COMMON NORMALS: Normal to inspection, nondistended, normoactive bowel sounds present and Soft to palpation PALPATION: Yes Soft to palpation, Yes Tenderness to palpation present (GI) Details: RLQ and Yes Guarding due to pal pation present (GI) OTHER: positive psoas and obturator signs, positive foot tap, no rebound tenderness Extremity: COMMON NORMALS: normal to inspection and full ROM Neuro: COMMON NORMALS: patient oriented x3 SENSORIUM/ORIENTATION: Yes alert Psych: COMMON NORMALS: mental status grossly normal, Normal thought process present and cooperative THOUGHT PROCESS: Normal thought process present Skin: COMMON NORMALS: no rashes or lesions noted and no wounds GENERAL SKIN EXAM: no rashes or lesions noted Course ED course: 27-year-old female presents to the ER today for right lower quadrant pain that began about 730 this morning. Patient reports this pain is constant and sharp and is worse with movement. She reports her last menstrual period was on 9 1 and patient's had a vasectomy. She reports her cycles are typically regular and not painful. Patient reports nausea associate with this pain. Denies any recent illness. Denies any change in bowel or bladder habits. Patient reports she had normal bowel movement this morning. We will go ahead and start with lab work and a CT of the abdomen pelvis with contrast. Vital Signs: Vital signs: Vital Signs Temperature 97.5 F L 08/09/22 09:47 Pulse Rate 56 L 08/09/22 11:55 Respiratory Rate 18 08/09/22 11:55 Blood Pressure 131/68 08/09/22 11:55 Pulse Oximetry 96 08/09/22 11:55 Oxygen Delivery Me thod 08/09/22 11:55 MDM - Abdominal Pain Medical Decision Making 27-year-old female presents to the ER today for right lower quadrant pain that began about 7:30 this morning. Patient reports this pain is constant and sharp and is worse with movement. She reports her last menstrual period was on 9 1 and patient's had a vasectomy. She reports her cycles are typically regular and not painful. Patient reports nausea associate with this pain. Denies any recent illness. Denies any change in bowel or bladder habits. Patient reports she had normal bowel movement this morning. We will go ahead and start with lab work and a CT of the abdomen pelvis with contrast. Lab work is unremarkable. CT is unremarkable, appendix is visualized and normal. Patient has some prominent lymph nodes in the right lower quadrant likely indicating a mesenteric adenitis. I discussed findings with patient. Discussed this is likely viral. Recommended anti-inflammatories, rest, and warm heat for symptomatic relief. Patient should follow-up with PCP in 3 to 5 days if no improvement. Return to the ER with any new or worsening symptoms. Patient verbalized understanding was in agreement with the treatment plan. Lab Data : 08/09/22 10:30 08/09/22 10:30 Labs/Radiology: Radiology Impressions Abdomen/Pelvis CT 08/09/22 10:15 IMPRESSION: 1. Normal appendix in RIGHT lower quadrant. No evidence of acute appendicitis. 2. A few prominent lymph nodes in the RIGHT lower quadrant can be seen with mesenteric adenitis. 3. No obstructing renal or ureteral calculi. 4. Nonobstructing RIGHT calyceal tip calculi unchanged from previous. 5. Diffuse fatty infiltration liver. Laboratory Results WBC 10.6 10^3/uL (4.0-10.0) H 08/09/22 10:30 RBC 4.16 10^6/uL (4.1-5.3) 08/09/22 10:30 Hgb 11.9 g/dL (11.5-15.3) 08/09/22 10:30 Hct 38.8 % (37.0-47.0) 08/09/22 10:30 MCV 93.3 fl (81-99) 08/09/22 10:30 MCH 28.6 pg (28.0-34.0) 08/09/22 10:30 MCHC 30.7 g/dL (30.0-36.0) 08/09/22 10:30 RDW 14.4 % (12.1-15.1) 08/09/22 10:30 Plt Count 350 10^3/cmm (130-400) 08/09/22 10:30 MPV 10.4 fL (7.4-10.4) 08/09/22 10:30 Neut % (Auto) 53.1 % 08/09/22 10:30 Lymph % (Auto) 37.5 % 08/09/22 10:30 Throckmorton % (Auto) 5.7 % 08/09/22 10:30 Eos % (Auto) 2.7 % 08/09/22 10:30 Baso % (Auto) 0.6 % 08/09/22 10:30 Neut # (Auto) 5.62 10^3/uL (1.8-7.7) 08/09/22 10:30 Lymph # (Auto) 4.0 10^3/uL (0.8-4.8) 08/09/22 10:30 Throckmorton # (Auto) 0.6 10^3/uL (0.2-0.9) 08/09/22 10:30 Eos # (Auto) 0.3 10^3/uL (0.0-0.8) 08/09/22 10:30 Baso # (Auto) 0.1 10^3/uL (0.0-0.1) 08/09/22 10:30 Nucleated RBC % (auto) 0 % 08/09/22 10:30 Nucleated RBCs # 0.0 /100WBC 08/09/22 10:30 Sodium 140 mmol/L (136-145) 08/09/22 10:30 Potassium 4.0 mmol/L (3.5-5.1) 08/09/22 10:30 Chloride 105 mmol/L (98-107) 08/09/22 10:30 Carbon Dioxide 25 mmol/L (22-29) 08/09/22 10:30 Anion Gap 14.0 (5-19) 08/09/22 10:30 BUN 12 mg/dL (6-20) 08/09/22 10:30 Creatinine 0.7 mg/dL (0.5-0.9) 08/09/22 10:30 GFR Calculation 98.9 mL/min (90-130) 08/09/22 10:30 Glucose 93 mg/dL (65-115) 08/09/22 10:30 Calculated Osmolality 289 mOsm/kg (285-295) 08/09/22 10:30 Calcium 9.1 mg/dL (8.5-10.5) 08/09/22 10:30 Total Bilirubin 0.3 mg/dL (0.15-1.2) 08/09/22 10:30 AST 17 U/L (0-32) 08/09/22 10:30 ALT 29 U/L (0-33) 08/09/22 10:30 Alkaline Phosphatase 69 U/L (35-105) 08/09/22 10:30 Total Protein 7.2 g/dL (6.6-8.7) 08/09/22 10:30 Albumin 3.8 g/dL (3.5-5.2) 08/09/22 10:30 Globulin 3.4 g/dL (1.3-4.6) 08/09/22 10:30 HCG, Qual Negative (Negative) 08/09/22 10:01 Urine Color Yellow (Yellow) 08/09/22 10:01 Urine Appearance Clear (CLEAR) 08/09/22 10:01 Urine pH 7 (5-7) 08/09/22 10:01 Ur Specific Gilman 1.015 (1.005-1.030) 08/09/22 10:01 Urine Protein Neg (Negative) 08/09/22 10:01 Urine Glucose (UA) Norm (Normal) 08/09/22 10:01 Urine Ketones Negative (Negative) 08/09/22 10:01 Urine Blood Neg (Negative) 08/09/22 10:01 Urine Nitrate Negative (Negative) 08/09/22 10:01 Urine Bilirubin Neg (Negative) 08/09/22 10:01 Urine Urobilinogen Neg mg/dL (Negative) 08/09/22 10:01 Ur Leukocyte Esterase Trace (Negative) H 08/09/22 10:01 Urine RBC None /hpf (0-2) 08/09/22 10:01 Urine WBC None /hpf (0-5) 08/09/22 10:01 Ur Squamous Epith Cells 0-4 /hpf (0-5) H 08/09/22 10:01 Amorphous Sediment Not Reportable 08/09/22 10:01 Urine Bacteria None /hpf (NONE) 08/09/22 10:01 Urine Mucus 1+ /hpf 08/09/22 10:01 Critical Care Time Critical Care Time: Critical Care Time: No Discharge Plan Discharge Patient Disposition: Home Clinical Impression: Abdominal pain, RLQ Condition: Stable Prescriptions: No Action topiramate [Topamax] 25 mg tablet 25 mg PO BID fexofenadine [Loyda Allergy] 180 mg tablet 180 mg PO DAILY albuterol sulfate 90 mcg/actuation HFA aerosol inhaler 1 - 2 puff inhalation Q4H PRN (Reason: Shortness Of Breath) venlafaxine 150 mg capsule,extended release 24hr 150 mg PO QAM fluticasone propion-salmeterol [Advair Diskus] 500-50 mcg/dose blister with device 1 inh inhalation BID doxycycline hyclate 100 mg capsule 100 mg PO BID Qty: 60 2RF peg 3350-electrolytes [Golytely] 236-22.74-6.74 -5.86 gram recon soln 240 ml PO Q10M Qty: 4000 0RF Rx Instructions: until fecal effluent is clear tizanidine 4 mg tablet 4 mg PO TID PRN (Reason: Muscle Spasm) methotrexate sodium 2.5 mg tablet 15 mg PO Q7D Rx Instructions: on mon folic acid 1 mg tablet 2 mg PO QAM Voltaren Arthritis Pain 1 % gel 4 g topical QID PRN (Reason: Pain) Rx Instructions: apply to single knee, ankle, foot; for foot includes sole/toes/top of foot cyclobenzaprine 10 mg tablet 10 mg PO Q8H PRN (Reason: Muscle Spasm) montelukast 10 mg tablet 10 mg PO QAM Discharge Orders: Discharge ED (Routine); Ordered 08/09/22 Ordered By: Bonita Wiley Referrals: Duncan Raza MD [Primary Care Provider] - Discharge Diet: Usual diet Discharge Activity: Resume usual activity Patient Instructions: Abdominal Pain (ED), Opioid Safety, Pain Management Activity Restrictions/Additional Instructions: Take ibuprofen as discussed for pain. Warm, moist heat recommended. Follow-up with PCP in 3 to 5 days if no improvement. Return to the ER with any new or worsening symptoms. Coding Level of Care Code ED Die Polisher for Chg Fwd Exam Comprehensive Documented by User: Minh Olivas DO 08/10/22 06:46 HPI - Abdominal Pain General: Chief Complaint: Abdominal Pain Stated Complaint: right side pain Time Seen by Provider: 08/09/22 09:58 PFSH ED PFSH: Medical History Recurrent UTI Surgical History History of tonsillectomy and adenoidectomy Family History Grandfather Cancer Grandmother Cancer Mother Hyperlipidemia Hypertension Family/Other Rheumatoid arthritis Denies family history of Diabetes Lupus Heart attack Stroke Social History Smoking and tobacco status: former smoker Second hand smoke exposure: No Alcohol intake: never Household members: spouse Marital status: Current occupational status: employed History of recent travel: No Course Vital Signs: Vital signs: Vital Signs Temperature 97.5 F L 08/09/22 09:47 Pulse Rate 56 L 08/09/22 11:55 Respiratory Rate 18 08/09/22 11:55 Blood Pressure 131/68 08/09/22 11:55 Pulse Oximetry 96 08/09/22 11:55 Oxygen Delivery Me thod 08/09/22 11:55 MDM - Abdominal Pain Medical Decision Making 27-year-old female presents to the ER today for right lower quadrant pain that began about 7:30 this morning. Patient reports this pain is constant and sharp and is worse with movement. She reports her last menstrual period was on 9 and patient's had a vasectomy. She reports her cycles are typically regular and not painful. Patient reports nausea associate with this pain. Denies any recent illness. Denies any change in bowel or bladder habits. Patient reports she had normal bowel movement this morning. We will go ahead and start with lab work and a CT of the abdomen pelvis with contrast. Lab work is unremarkable. CT is unremarkable, appendix is visualized and normal. Patient has some prominent lymph nodes in the right lower quadrant likely indicating a mesenteric adenitis. I discussed findings with patient. Discussed this is likely viral. Recommended anti-inflammatories, rest, and warm heat for symptomatic relief. Patient should follow-up with PCP in 3 to 5 days if no improvement. Return to the ER with any new or worsening symptoms. Patient verbalized understanding was in agreement with the treatment plan. Chart reviewed and patient discussed with midlevel. Agree with assessment and plan. Lab Data : 08/09/22 10:30 08/09/22 10:30 Labs/Radiology: Radiology Impressions Abdomen/Pelvis CT 08/09/22 10:15 IMPRESSION: 1. Normal appendix in RIGHT lower quadrant. No evidence of acute appendicitis. 2. A few prominent lymph nodes in the RIGHT lower quadrant can be seen with mesenteric adenitis. 3. No obstructing renal or ureteral calculi. 4. Nonobstructing RIGHT calyceal tip calculi unchanged from previous. 5. Diffuse fatty infiltration liver. Laboratory Results WBC 10.6 10^3/uL (4.0-10.0) H 08/09/22 10:30 RBC 4.16 10^6/uL (4.1-5.3) 08/09/22 10:30 Hgb 11.9 g/dL (11.5-15.3) 08/09/22 10:30 Hct 38.8 % (37.0-47.0) 08/09/22 10:30 MCV 93.3 fl (81-99) 08/09/22 10:30 MCH 28.6 pg (28.0-34.0) 08/09/22 10:30 MCHC 30.7 g/dL (30.0-36.0) 08/09/22 10:30 RDW 14.4 % (12.1-15.1) 08/09/22 10:30 Plt Count 350 10^3/cmm (130-400) 08/09/22 10:30 MPV 10.4 fL (7.4-10.4) 08/09/22 10:30 Neut % (Auto) 53.1 % 08/09/22 10:30 Lymph % (Auto) 37.5 % 08/09/22 10:30 Throckmorton % (Auto) 5.7 % 08/09/22 10:30 Eos % (Auto) 2.7 % 08/09/22 10:30 Baso % (Auto) 0.6 % 08/09/22 10:30 Neut # (Auto) 5.62 10^3/uL (1.8-7.7) 08/09/22 10:30 Lymph # (Auto) 4.0 10^3/uL (0.8-4.8) 08/09/22 10:30 Throckmorton # (Auto) 0.6 10^3/uL (0.2-0.9) 08/09/22 10:30 Eos # (Auto) 0.3 10^3/uL (0.0-0.8) 08/09/22 10:30 Baso # (Auto) 0.1 10^3/uL (0.0-0.1) 08/09/22 10:30 Nucleated RBC % (auto) 0 % 08/09/22 10:30 Nucleated RBCs # 0.0 /100WBC 08/09/22 10:30 Sodium 140 mmol/L (136-145) 08/09/22 10:30 Potassium 4.0 mmol/L (3.5-5.1) 08/09/22 10:30 Chloride 105 mmol/L (98-107) 08/09/22 10:30 Carbon Dioxide 25 mmol/L (22-29) 08/09/22 10:30 Anion Gap 14.0 (5-19) 08/09/22 10:30 BUN 12 mg/dL (6-20) 08/09/22 10:30 Creatinine 0.7 mg/dL (0.5-0.9) 08/09/22 10:30 GFR Calculation 98.9 mL/min (90-130) 08/09/22 10:30 Glucose 93 mg/dL (65-115) 08/09/22 10:30 Calculated Osmolality 289 mOsm/kg (285-295) 08/09/22 10:30 Calcium 9.1 mg/dL (8.5-10.5) 08/09/22 10:30 Total Bilirubin 0.3 mg/dL (0.15-1.2) 08/09/22 10:30 AST 17 U/L (0-32) 08/09/22 10:30 ALT 29 U/L (0-33) 08/09/22 10:30 Alkaline Phosphatase 69 U/L (35-105) 08/09/22 10:30 Total Protein 7.2 g/dL (6.6-8.7) 08/09/22 10:30 Albumin 3.8 g/dL (3.5-5.2) 08/09/22 10:30 Globulin 3.4 g/dL (1.3-4.6) 08/09/22 10:30 HCG, Qual Negative (Negative) 08/09/22 10:01 Urine Color Yellow (Yellow) 08/09/22 10:01 Urine Appearance Clear (CLEAR) 08/09/22 10:01 Urine pH 7 (5-7) 08/09/22 10:01 Ur Specific Gilman 1.015 (1.005-1.030) 08/09/22 10:01 Urine Protein Neg (Negative) 08/09/22 10:01 Urine Glucose (UA) Norm (Normal) 08/09/22 10:01 Urine Ketones Negative (Negative) 08/09/22 10:01 Urine Blood Neg (Negative) 08/09/22 10:01 Urine Nitrate Negative (Negative) 08/09/22 10:01 Urine Bilirubin Neg (Negative) 08/09/22 10:01 Urine Urobilinogen Neg mg/dL (Negative) 08/09/22 10:01 Ur Leukocyte Esterase Trace (Negative) H 08/09/22 10:01 Urine RBC None /hpf (0-2) 08/09/22 10:01 Urine WBC None /hpf (0-5) 08/09/22 10:01 Ur Squamous Epith Cells 0-4 /hpf (0-5) H 08/09/22 10:01 Amorphous Sediment Not Reportable 08/09/22 10:01 Urine Bacteria None /hpf (NONE) 08/09/22 10:01 Urine Mucus 1+ /hpf 08/09/22 10:01 Discharge Plan Discharge Patient Disposition: Home Clinical Impression: Abdominal pain, RLQ Condition: Stable Prescriptions: No Action topiramate [Topamax] 25 mg tablet 25 mg PO BID fexofenadine [Loyda Allergy] 180 mg tablet 180 mg PO DAILY albuterol sulfate 90 mcg/actuation HFA aerosol inhaler 1 - 2 puff inhalation Q4H PRN (Reason: Shortness Of Breath) venlafaxine 150 mg capsule,extended release 24hr 150 mg PO QAM fluticasone propion-salmeterol [Advair Diskus] 500-50 mcg/dose blister with device 1 inh inhalation BID doxycycline hyclate 100 mg capsule 100 mg PO BID Qty: 60 2RF peg 3350-electrolytes [Golytely] 236-22.74-6.74 -5.86 gram recon soln 240 ml PO Q10M Qty: 4000 0RF Rx Instructions: until fecal effluent is clear tizanidine 4 mg tablet 4 mg PO TID PRN (Reason: Muscle Spasm) methotrexate sodium 2.5 mg tablet 15 mg PO Q7D Rx Instructions: on mon folic acid 1 mg tablet 2 mg PO QAM Voltaren Arthritis Pain 1 % gel 4 g topical QID PRN (Reason: Pain) Rx Instructions: apply to single knee, ankle, foot; for foot includes sole/toes/top of foot cyclobenzaprine 10 mg tablet 10 mg PO Q8H PRN (Reason: Muscle Spasm) montelukast 10 mg tablet 10 mg PO QAM Discharge Orders: Discharge ED (Routine); Ordered 08/09/22 Ordered By: Bonita Wiley Referrals: Duncan Raza MD [Primary Care Provider] - Discharge Diet: Usual diet Discharge Activity: Resume usual activity Patient Instructions: Abdominal Pain (ED), Opioid Safety, Pain Management Activity Restrictions/Additional Instructions: Take ibuprofen as discussed for pain. Warm, moist heat recommended. Follow-up with PCP in 3 to 5 days if no improvement. Return to the ER with any new or worsening symptoms. Coding Level of Care Code ED Die Polisher for Brittany Fwd Exam Comprehensive
[2022-08-09 10:13] VITALS: BP 146/62; PULSE 70; RESP 18; O2SAT 100
--- NOTE | 2022-08-09 10:15 | CT_ITS ---
WS: [id number] CT ABDOMEN PELVIS TECHNIQUE: Contrast-enhanced CT of the abdomen and pelvis with coronal and sagittal reformatted image s. CLINICAL INFORMATION: RLQ pain COMPARISON: CT March 28, 2022 DLP: 1350.[address] scans at [facility] use at least one of these dose optimization techniques: automated e xposure control; mA and/or kV adjustment per patient size (includes targeted exams where dose is matc hed to clinical indication); or iterative reconstruction. FINDINGS: Normal appendix in the RIGHT lower quadrant. No evidence of acute appendicitis. A few enlarged lymph nodes in the RIGHT lower quadrant can be seen with mesenteric adenitis. Adrenal glands are normal. No obstructing RIGHT renal or ureteral calculi. Prominent LEFT renal pelvi s. No obstructing LEFT renal or ureteral calculi.2 nonobstructing 6 to 7 mm RIGHT calyceal tip calcul i unchanged from previous. Lung bases are well aerated. Diffuse fatty infiltration of the liver. Hepatomegaly. Normal gallbladde r. Normal spleen. Normal GE junction. Adrenal glands are normal. Normal portal vein and splenic vein. Normal caliber abdominal aorta. Normal sigmoid colon. No evidence of high-grade small or large bowel obstruction. A few sigmoid diver ticuli. Small fat-containing umbilical hernia. Incidental LEFT ovarian cyst measuring 1.[address]/CT abdomen pelvis w con* [id number] IMPRESSION: 1. Normal appendix in RIGHT lower quadrant. No evidence of acute appendicitis. 2. A few prominent lymph nodes in the RIGHT lower quadrant can be seen with me senteric adenitis. 3. No obstructing renal or ureteral calculi. 4. Nonobstructing RIGHT calyceal tip calculi unchanged from previous. 5. Diffuse fatty infiltration liver.
[2022-08-09 10:25] LABS: Bilirubin Urine Neg (Negative); Blood Urine Neg (Negative); Glucose Urine UA Norm (Normal); Ketones Urine Negative (Negative); Leukocyte Esterase Urine Trace (Negative); Nitrate Urine Negative (Negative); Protein Urine Neg (Negative); Specific Gravity, Urine 1.015 (1.005-1.030); Urine Appearance Clear (CLEAR); Urine Color Yellow (Yellow); Urobilinogen Urine Neg (Negative); pH Urine 7 (5-7)
--- NOTE | 2022-08-09 10:25 | PC.PHAR ---
pt states she takes care of her own medications-pt states she is no longer using the zafemy-notes are made in the pharmacy comments
[2022-08-09 10:26] LABS: Add Urine Microscopic? YES
[2022-08-09 10:42] LABS: Basophils # 0.1 10^3/uL (0.0-0.1); Basophils % 0.6 %; Eosinophils # 0.3 10^3/uL (0.0-0.8); Eosinophils % 2.7 %; Hematocrit 38.8 % (37.0-47.0); Hemoglobin 11.9 g/dL (11.5-15.3); Lymphocytes % 37.5 %; Mean Corpuscular HGB Conc 30.7 g/dL (30.0-36.0); Mean Corpuscular Hemoglobin 28.6 pg (28.0-34.0); Mean Corpuscular Volume 93.3 fl (81-99); Mean Platelet Volume 10.4 fL (7.4-10.4); Monocytes # 0.6 10^3/uL (0.2-0.9); Monocytes % 5.7 %; Neutrophils # 5.62 10^3/uL (1.8-7.7); Neutrophils % 53.1 %; Nucleated Red Blood Cells % 0 %; Platelet Count 350 10^3/cmm (130-400); Red Blood Count 4.16 10^6/uL (4.1-5.3); Red Cell Distribution Width 14.4 % (12.1-15.1); White Blood Count 10.6 10^3/uL (4.0-10.0)
[2022-08-09 10:44] LABS: Squamous Epithelial Cell Urine 0-4 /hpf (0-5)
[2022-08-09 10:45] LABS: Add Urine Culture? No; Mucus Urine 1+ /hpf
[2022-08-09] MEDS: iohexol 350 mg/mL 100 mL Btl IV (10:56)
[2022-08-09 11:10] LABS: Alanine Aminotransferase 29 U/L (0-33); Albumin Level 3.8 g/dL (3.5-5.2); Alkaline Phosphatase 69 U/L (35-105); Aspartate Amino Transferase 17 U/L (0-32); Blood Urea Nitrogen 12 mg/dL (6-20); Calcium 9.1 mg/dL (8.5-10.5); Carbon Dioxide 25 mmol/L (22-29); Chloride 105 mmol/L (98-107); Globulin 3.4 g/dL (1.3-4.6); Glomerular Filtration Rate 98.9 mL/min (90-130); Glucose 93 mg/dL (65-115); Osmolality Calculated 289 mOsm/kg (285-295); Sodium 140 mmol/L (136-145); Total Bilirubin 0.3 mg/dL (0.15-1.2); Total Protein 7.2 g/dL (6.6-8.7)
[2022-08-09 11:16] VITALS: BP 128/63; PULSE 60; RESP 20; O2SAT 97
[2022-08-09 11:55] VITALS: BP 131/68; PULSE 56; RESP 18; O2SAT 96
[2022-08-09 12:21] LABS: HCG Qualitative Urine. Negative (Negative)
== END 2022-08-09 12:05 | disposition home or self-care (01) ==
PROVIDERS: Emergency Provider Physician Assistant; PCP Family Medicine
DX: R10.31 Right lower quadrant pain (principal)
CPT/HCPCS: 74177; 80053; 81001; 81025; 85025; 99285; Q9967

== ENCOUNTER 2022-08-15 07:07 | Day surgery (SDC) | payer MEDICAID, SELFPAY ==
[2022-08-13 12:39] VITALS: BMI 50.8
--- NOTE | 2022-08-15 07:23 | P.HP_ITS ---
Same Day Surgery H&P Indication for Procedure/HPI DATE OF PROCEDURE: August 15, 2022 CHIEF COMPLAINT/INDICATIONFOR SURGICAL PROCEDURE: Blood and diarrhea PREOP DIAGNOSIS: Bloody diarrhea PLANNED PROCEDURE: Operation Date: 08/15/22 08:45 Proposed Procedures p EGD and colonoscopy 80078,24134,K92.1(Not Applicable) - Santo Aragon MD s Colonoscopy(Not Applicable) - Santo Aragon MD 04/08/2022 This is a pleasant 26 years old female patient morbidly obese with associated hepatic steatosis, rheumatoid arthritis, osteoarthritis, low vitamin D level, trochanteric bursitis, right foot pain, neuropathy, lumbar radiculopathy, elevated LFTs, recurrent UTI and right kidney stone.? Patient is referred to my practice with history of persistent nausea associated with right upper quadrant abdominal pain mostly dull but gets worse with walking and becomes sharp nothing seems to make it better, patient states that she has been losing weight and going to the gym but because of her foot she was hindered and she started gaining back up.? She is very depressed and devastated because of her obesity status and had further work up in the form of ultrasound of the liver and gallbladder that did show: 1.? Limited evaluation due to patient's body habitus. 2.? No cholelithiasis identified. 3.? Moderate hepatic steatosis and hepatomegaly. A CT scan of the abdomen pelvis was done 03/28/2022 as well and showed Liver: Mild hepatomegaly. Mild hepatic steatosis. Gallbladder and bile ducts: No radiodense gallstones. No biliary ductal dilatation. Pancreas: Unremarkable. Spleen: Unremarkable. Adrenal glands: Normal. No mass. Kidneys and ureters: 12 mm nonobstructing right renal calculus. No hydronephrosis. Stomach and bowel: Scattered colonic diverticula without evidence of diverticulitis. No obstruction. No bowel wall thickening. No pneumatosis. Appendix: Normal. Intraperitoneal space: No free fluid. No organized fluid collection. No free air. Vasculature: Unremarkable. No aneurysm. Lymph nodes: No pathologically enlarged lymph nodes. Urinary bladder: Unremarkable as visualized. Reproductive: Unremarkable. Bones/joints: No acute osseous abnormality. Soft tissues: Small, fat containing umbilical hernia. Interim history 07/10/2022 Patient comes today as a follow-up and she did have a HIDA scan that was reported as normal and patient did not encounter much of abdominal discomfort.? She continues to have right upper quadrant abdominal pain likely due to the chronic hepatic steatosis.? Patient reports to me that she has been having diarrhea for the past 1 month and a half. Patient reports history of diarrhea, bloody in nature, has been going on for quite some time.? Patient denies history of recent travels, antibiotics, change in medications, questionable source of water, no history of sick contacts, no history of thyroid disorders. Patient reports that she never had endoscopies before.? No obvious history of colon cancer or inflammatory bowel disease. 08/15/2022 Patient comes today for diagnostic EGD and colonoscopy. Patient recently had a CT scan of the abdomen pelvis on 08/09/2022 that did show 1.? Normal appendix in RIGHT lower quadrant. No evidence of acute appendicitis. 2.? A few prominent lymph nodes in the RIGHT lower quadrant can be seen with mesenteric adenitis. 3.? No obstructing renal or ureteral calculi. 4.? Nonobstructing RIGHT calyceal tip calculi unchanged from previous. 5.? Diffuse fatty infiltration liver. ? ROS All systems have been reviewed negative except as for the above or per problem list. Medications/Allergies* Home Medications Medication Instructions Recorded Confirmed Type albuterol sulfate 90 mcg/actuation 1 - 2 puff inhalation Q4H PRN 09/26/21 08/15/22 History aerosol inhaler Shortness Of Breath fexofenadine 180 mg tablet 180 mg PO DAILY 09/26/21 08/15/22 History (Loyda Allergy) topiramate 25 mg tablet (Topamax) 25 mg PO BID 09/26/21 08/15/22 History venlafaxine 150 mg 150 mg PO QAM 11/27/21 08/15/22 History capsule,extended release 24 hr fluticasone 500 mcg-salmeterol 50 1 inh inhalation BID 01/21/22 08/15/22 History mcg/dose blistr powdr for inhalation (Advair Diskus) cyclobenzaprine 10 mg tablet 10 mg PO Q8H PRN Muscle Spasm 08/09/22 08/15/22 History diclofenac sodium 1 % topical gel 4 g topical QID PRN Pain 08/09/22 08/15/22 History (Voltaren Arthritis Pain) folic acid 1 mg tablet 2 mg PO QAM 08/09/22 08/15/22 History methotrexate sodium 2.5 mg tablet 15 mg PO Q7D 08/09/22 08/15/22 History montelukast 10 mg tablet 10 mg PO QAM 08/09/22 08/15/22 History tizanidine 4 mg tablet 4 mg PO TID PRN Muscle Spasm 08/09/22 08/15/22 History Allergies/Adverse Reactions Allergy/AdvReac Type Severity Reaction Status Date / Time sumatriptan [From Imitrex] Allergy Severe THROAT Verified 08/15/22 08:59 SWELLING Pertinent History/Comorbid Conditions* Medical History (Updated 08/09/22 @ 11:51 by Bonita Wiley PA-C) Recurrent UTI Surgical History (Updated 04/05/22 @ 13:06 by Anny Nguyen APRN) History of tonsillectomy and adenoidectomy Family History (Updated 09/26/21 @ 09:39 by Pham Marie LPN) Rheumatoid arthritis Family/Other Hyperlipidemia Mother Cancer Grandfather Grandmother Hypertension Mother Denies family history of Diabetes Lupus Heart attack Stroke Social History Smoking and tobacco status: former smoker Second hand smoke exposure: No Alcohol intake: never Household members: spouse Marital status: Current occupational status: employed History of recent travel: No Pertinent Exam Findings alert, oriented x 3, regular rate & rhythm and procedure specific exam findings (Abdominal exam nontender nondistended soft) Recommendations Surgery/Procedure today (EGD and colonoscopy with possible biopsy) Coding Level of Care Code Acute 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
[2022-08-15 07:39] VITALS: BP 174/94; PULSE 69; RESP 18; TEMP 36.4; O2SAT 100
--- NOTE | 2022-08-15 08:44 | ANES.PREANE2 ---
Pre-Anesthetic Assessment Height/Weight: Height 1.7 m Weight 147.418 kg Temp Pulse Resp BP Pulse Ox O2 Del Method 97.6 F 69 18 174/94 100 08/15/22 07:39 08/15/22 07:39 08/15/22 07:39 08/15/22 07:39 08/15/22 07:39 08/15/22 07:39 Preop Diagnosis: Bloody diarrhea Operation Date: 08/15/22 08:45 Proposed Procedures p EGD and colonoscopy 77666,62206,K92.1(Not Applicable) - Santo Aragon MD s Colonoscopy(Not Applicable) - Santo Aragon MD Familial anesthetic complications: none Was Beta Anupam taken within 24 hours: N/A Was Clonidine taken within 24 hours: N/A Last intake: Intake Last Liquid Date 08/14/22 Last Liquid Time 19:00 Last Solid Date 08/13/22 Last Solid Time 20:00 Social No alcohol Airway Mallampati: Class III Dentition: other (missing) Pulmonary Asthma Hepatic fatty liver Metabolic Morbid Obesity [facility] [place] Rheumatoid Arthritis Neuropsych Neuropathy Anesthetic Plan ASA status: 3 Anesthesia: MAC Risk of > 500 ml blood loss (7ml/kg in children): No Medications/Allergies Home Medications Medication Instructions Recorded Confirmed Last Taken Type albuterol sulfate 90 mcg/actuation 1 - 2 puff inhalation Q4H PRN 09/26/21 08/15/22 2 Weeks Ago History aerosol inhaler Shortness Of Breath ~08/01/22 fexofenadine 180 mg tablet 180 mg PO DAILY 09/26/21 08/15/22 08/13/22 History (Loyda Allergy) topiramate 25 mg tablet (Topamax) 25 mg PO BID 09/26/21 08/15/22 08/13/22 History venlafaxine 150 mg 150 mg PO QAM 11/27/21 08/15/22 08/13/22 History capsule,extended release 24 hr fluticasone 500 mcg-salmeterol 50 1 inh inhalation BID 01/21/22 08/15/22 1 Month Ago History mcg/dose blistr powdr for ~07/15/22 inhalation (Advair Diskus) doxycycline hyclate 100 mg capsule 100 mg PO BID #60 caps 06/17/22 08/15/22 08/13/22 Rx peg 3350-electrolytes 236 240 ml PO Q10M #4,000 mL 07/10/22 08/13/22 Unknown Rx gram-22.74 gram-6.74 gram-5.86 gram solution (Golytely) cyclobenzaprine 10 mg tablet 10 mg PO Q8H PRN Muscle Spasm 08/09/22 08/15/22 1 Month Ago History ~07/15/22 diclofenac sodium 1 % topical gel 4 g topical QID PRN Pain 08/09/22 08/15/22 2 Weeks Ago History (Voltaren Arthritis Pain) ~07/26/22 folic acid 1 mg tablet 2 mg PO QAM 08/09/22 08/15/22 08/13/22 History methotrexate sodium 2.5 mg tablet 15 mg PO Q7D 08/09/22 08/15/22 08/12/22 History montelukast 10 mg tablet 10 mg PO QAM 08/09/22 08/15/22 08/13/22 History tizanidine 4 mg tablet 4 mg PO TID PRN Muscle Spasm 08/09/22 08/15/22 2 Months Ago History ~06/14/22 Allergies Allergy/AdvReac Type Severity Reaction Status Date / Time sumatriptan [From Imitrex] Allergy Severe THROAT Verified 08/15/22 07:24 SWELLING PFSH Anesthesia Medical History Recurrent UTI Surgical History History of tonsillectomy and adenoidectomy Family History Grandfather Cancer Grandmother Cancer Mother Hyperlipidemia Hypertension Family/Other Rheumatoid arthritis Denies family history of Diabetes Lupus Heart attack Stroke Social History Smoking and tobacco status: former smoker Second hand smoke exposure: No Alcohol intake: never Household members: spouse Marital status: Current occupational status: employed History of recent travel: No Female Reproductive History Date of last menstrual period: 07/19/22 Data Anesthesia Cardiac Studies: No Data to Display
[2022-08-15] MEDS: sodium chloride 0.9% 1,000 ML 30 ML IV (08:54)
[2022-08-15 09:28] VITALS: BP 106/51; PULSE 78; RESP 18; TEMP 36.1; O2SAT 99
--- NOTE | 2022-08-15 09:29 | ANE.PACU2 ---
Inpatient post-anesthesia follow up: Airway intact: Yes Vital signs: Temperature 97.0 F Pulse Rate 78 Respiratory Rate 18 Blood Pressure 106/51 Pulse Oximetry 99 Oxygen Delivery Me thod Room Air Oxygen Flow Rate Fraction of Inspir ed Oxygen Hydration adequate: Yes Nausea and vomiting: No Pain level: 1 Mental status: Baseline
[2022-08-15 09:44] VITALS: BP 110/57; PULSE 67; RESP 18; O2SAT 100
[2022-08-15 10:00] LABS: OR HCG Qualitative Urine Negative (Negative)
== END 2022-08-15 09:57 | disposition home or self-care (01) ==
PROVIDERS: Anesthesiology; PCP Family Medicine; Visit Provider Surgery
PROC: 0DJD8ZZ Inspection of Lower Intestinal Tract, Via Natural or Artificial Opening Endoscopic (ICD-10-PCS; CPT 45378; 2022-08-15 08:45)
PROC: 0DJ08ZZ Inspection of Upper Intestinal Tract, Via Natural or Artificial Opening Endoscopic (ICD-10-PCS; CPT 43235; 2022-08-15 08:45)
DX: K92.1 Melena (principal); Z87.891 Personal history of nicotine dependence; E66.01 Morbid (severe) obesity due to excess calories; Z68.43 Body mass index [BMI] 50.0-59.9, adult; M06.9 Rheumatoid arthritis, unspecified
CPT/HCPCS: 43239; 45378; 82274; 83630; 84703; 87493; 87506; 88305; J2704; J7030

== ENCOUNTER 2022-08-17 06:00 | Outpatient (RCR) | payer MEDICAID, SELFPAY | END 2022-08-19 23:59 | disposition home or self-care (01) | LOC: SPT 06:00 | PROVIDERS: PCP Family Medicine; Visit Provider Family Medicine | DX: M54.16 Radiculopathy, lumbar region (principal); M54.9 Dorsalgia, unspecified; G89.29 Other chronic pain | CPT/HCPCS: 97110 ==

== ENCOUNTER → 2022-09-24 08:19 | Outpatient (BNVA) | payer MEDICAID, SELFPAY | PROVIDERS: PCP Family Medicine; Visit Provider Urology | DX: N39.0 Urinary tract infection, site not specified (principal); N20.9 Urinary calculus, unspecified; N20.0 Calculus of kidney | CPT/HCPCS: 81003 ==

== ENCOUNTER 2022-10-04 07:33 | Day surgery (SDC) | payer MEDICAID, SELFPAY ==
[2022-10-03 08:52] VITALS: BMI 51.7
--- NOTE | 2022-10-04 | SCC_ITS ---
Procedure done: Right tailor's bunionectomy CPT code 26714 5 seconds of fluoroscopic guidance, for a cumulative dose of 0.13 mGy, was provided to Dr. Rey by the radiology department. C-arm images of the foot were saved for the patient's permanent record. [facility]
--- NOTE | 2022-10-04 | XR_ITS ---
WS: [id number] C-ARM RADIOGRAPHS RIGHT FOOT; 2 IMAGES HISTORY: Right tailor's bunionectomy COMPARISON: None available. Intraoperative imaging during bunionectomy. XR/XR foot RT 2V [id number] IMPRESSION: Intraoperative imaging during bunionectomy.
[2022-10-04 07:45] VITALS: BP 129/89; PULSE 77; RESP 18; TEMP 36.1; O2SAT 98
[2022-10-04 08:00] LABS: OR HCG Qualitative Urine Negative (Negative)
--- NOTE | 2022-10-04 08:02 | ANES.PREANE2 ---
Pre-Anesthetic Assessment Height/Weight: Height 1.7 m Weight 149.685 kg Temp Pulse Resp BP Pulse Ox O2 Del Method 97 F L 77 18 129/89 98 10/04/22 07:45 10/04/22 07:45 10/04/22 07:45 10/04/22 07:45 10/04/22 07:45 10/04/22 07:51 Preop Diagnosis: Right tailor's bunion Operation Date: 10/04/22 09:10 Proposed Procedures p Right tailor's bunionectomy 57569,M21.6X1(Right) - Damion Rey DPM Familial anesthetic complications: None Was Beta Anupam taken within 24 hours: N/A Was Clonidine taken within 24 hours: N/A Last intake: Intake Last Liquid Date 10/03/22 Last Liquid Time 22:00 Last Solid Date 10/03/22 Last Solid Time 18:30 Social No alcohol and No tobacco Exam alert, oriented x 3, clear to auscultation bilaterally and regular rate & rhythm Airway Mallampati: Class III Dentition: full Pulmonary Asthma Hepatic fatty liver Metabolic Morbid Obesity [facility] [place] Osteoarthritis/DJD and Rheumatoid Arthritis Neuropsych Neuropathy Anesthetic Plan ASA status: 2 Anesthesia: MAC Risk of > 500 ml blood loss (7ml/kg in children): No Medications/Allergies Home Medications Medication Instructions Recorded Confirmed Last Taken Type albuterol sulfate 90 mcg/actuation 1 - 2 puff inhalation Q4H PRN 09/26/21 10/04/22 10/03/22 History aerosol inhaler Shortness Of Breath fexofenadine 180 mg tablet 180 mg PO DAILY 09/26/21 10/03/22 10/03/22 History (Loyda Allergy) topiramate 25 mg tablet (Topamax) 25 mg PO BID 09/26/21 10/03/22 10/03/22 06:30 History venlafaxine 150 mg 150 mg PO QAM 11/27/21 10/03/22 10/03/22 06:30 History capsule,extended release 24 hr cyclobenzaprine 10 mg tablet 10 mg PO Q8H PRN Muscle Spasm 08/09/22 10/03/22 10/02/22 History diclofenac sodium 1 % topical gel 4 g topical QID PRN Pain 08/09/22 10/03/22 09/17/22 History (Voltaren Arthritis Pain) folic acid 1 mg tablet 2 mg PO QAM 08/09/22 10/03/22 10/03/22 06:30 History methotrexate sodium 2.5 mg tablet 15 mg PO Q7D 08/09/22 10/03/22 09/16/22 History montelukast 10 mg tablet 10 mg PO QAM 08/09/22 10/03/22 10/03/22 06:30 History tizanidine 4 mg tablet 4 mg PO TID PRN Muscle Spasm 08/09/22 10/03/22 08/27/22 History doxycycline hyclate 100 mg capsule See Rx Instructions .Route 09/19/22 10/03/22 10/03/22 06:30 Rx .COMPLEX #60 caps Allergies Allergy/AdvReac Type Severity Reaction Status Date / Time sumatriptan [From Imitrex] Allergy Severe THROAT Verified 10/04/22 07:40 SWELLING [facility] Anesthesia Medical History Bloody diarrhea Recurrent UTI Surgical History History of tonsillectomy and adenoidectomy Family History Grandfather Cancer Grandmother Cancer Mother Hyperlipidemia Hypertension Family/Other Rheumatoid arthritis Denies family history of Diabetes Lupus Heart attack Stroke Social History Smoking and tobacco status: former smoker Second hand smoke exposure: No Alcohol intake: never Household members: spouse Marital status: Current occupational status: employed History of recent travel: No Female Reproductive History Date of last menstrual period: 09/05/22 Data Anesthesia Cardiac Studies: No Data to Display
[2022-10-04] MEDS: sodium chloride 0.9% 1,000 ML 30 ML IV (08:03)
[2022-10-04] MEDS: gabapentin 300 mg Capsule PO (08:05)
--- NOTE | 2022-10-04 08:43 | W.PM.OPSUD ---
Surgery/Procedure H&P Update DATE OF PROCEDURE: October 04, 2022 DATE H&P PERFORMED: 09/23/22 CHANGES TO PREVIOUS DOCUMENTATION: none PREOP DIAGNOSIS: Right tailor's bunion PLANNED PROCEDURE: Operation Date: 10/04/22 09:10 Proposed Procedures p Right tailor's bunionectomy 10188,M21.6X1(Right) - Damion Rey DPM
[2022-10-04] MEDS: ceFAZolin 3,000 MG in sodium chloride 0.9% (100 ml) 100 ML 200 MG IV (09:07)
[2022-10-04 09:44] VITALS: BP 135/73; PULSE 61; RESP 12; TEMP 36.7; O2SAT 100
[2022-10-04 09:50] VITALS: BP 102/71; PULSE 72; RESP 13; O2SAT 97
--- NOTE | 2022-10-04 09:54 | P.OP_ITS ---
Operative Report Date of procedure: October 04, 2022 Pre-op diagnosis: Right tailor's bunion Post-op diagnosis: Right tailor's bunion Procedure done: Right tailor's bunionectomy CPT code 02149 Implants: Right medical ProStep medium Specimens removed/disposition: None Pathology: None Surgeon: Damion Rey D.P.M. Director Of Analytical Development: Shen Estimated blood loss: 5 16 IV fluids: 0 Urine output: 0 Complications: None Findings: Improved anatomic alignment of fifth metatarsal right foot Brief History: Patient is requesting surgical intervention as conservative management has failed to alleviate her pain to the right foot tailor's bunion.? Previous treatments have included wide accommodative shoes, prefabricated orthotics, daily stretching, padding/spacing, anti-inflammatories orally as well as co rtisone injection.? Patient has pain on a daily basis in her right tailor's bunion as a source of enough pain that it limits her activities.? She would like to discuss options.? I reviewed at length with the patient, the risks, potential complications, benefits, alternatives, expectations, and typical outcomes associated with the surgery. The risks and potential complications were explained in detail, including but not limited to infection, wound dehiscence or soft tissue complications, bleeding and hematoma, chronic edema, neuritis or nerve damage producing numbness or chronic pain, CRPS, failure to relieve pain or worsening pain, thick / painful / unsightly scar, limited motion / stiffness, malposition, delayed union, malunion, or nonunion, fracture, reaction to implants, anesthetic complications, venous thromboembolism, and deformity recurrence.? I discussed the notion of no regrets with the patient as it pertains to complications and outcomes. The patient seemed to understand the nature of the proposed care and required convalescence. They asked appropriate questions, answered to their satisfaction. They are aware no guarantees can be made as to a satisfactory outcome and they understand there may be other possible unforeseen complications or outcomes not listed here that will be treated accordingly if they arise. There were no written or implied guarantees given to the patient. They gave informed consent to proceed.? Rheumatoid arthritis increases risk for postoperative complications, recurrence of deformity, failure to alleviate pain and delayed healing.? Patient wishes to proceed.? Would like to have this done October 04, right tailor's bunionectomy.? Will hold methotrexate. Procedure: Under mild sedation the patient was brought to the operating room and remained on the gurney in supine position. A timeout was performed. Anesthesia was then administered by the anesthesia service. Local anesthesia was injected by myself consisting of 30 cc of 2-1 mixture of 0.5% Marcaine plain and Exparel in a right reverse Dominguez block. Well-padded pneumatic tourniquet was applied to the right leg. The right lower extremity was then scrubbed, prepped and draped utilizing normal aseptic technique. Right foot was exanguinated with an Esmarch bandage and the tourniquet inflated to 250 mmHg. Attention was directed to the dorsal lateral aspect of the right fifth metatarsal phalangeal joint where a linear longitudinal incision was made with a #15 blade through skin with dissection carried down through subcutaneous tissue to the area of joint capsule and periosteum utilizing a combination of blunt and sharp technique. Care was taken to retract and preserve neurovascular and tendinous structures. All bleeders were ligated and cauterized as necessary. A transverse osteotomy was performed at the metaphyseal diaphyseal juncture of the right fifth metatarsal perpendicular to the longitudinal axis of the fifth metatarsal. The head of the fifth metatarsal was translated medially in a more anatomically correct position and fixated utilizing a intramedullary implant provided by [employer] with a single locking screw into the head of the fifth metatarsal with excellent bony apposition and compression noted. This was done utilizing standard technique provided by manufacture. Intraoperative C arm utilized in AP oblique and lateral views confirmed excellent reduction of the tailor's bunion and excellent placement of hardware within the head of the fifth metatarsal. The incision was irrigated with copious amounts of sterile saline solution. All rough edges were smoothed with a hand rasp followed by further irrigation and closure with subcutaneous tissue and joint capsule closed with 4- 0 Vicryl and skin with 4-0 nylon. Incision was then dressed with Adaptic, sterile 4 x 4, Kerlix and Coban followed by postop shoe. Tourniquet was deflated and a prompt hyperemic response was noted to the distal digits of the right foot. Patient tolerated the procedure and anesthesia well and was transferred to the PACU with vital signs stable and vascular status intact. Following a period of postoperative monitoring she will be discharged home may be weightbearing as tolerated below threshold of pain otherwise is to rest and elevate her right foot, is to use a postop shoe at all times when weightbearing. Was given at home care instructions, follow-up in my cell phone number to contact with any postoperative questions or concerns.
[2022-10-04 10:21] VITALS: BP 104/86; PULSE 80; RESP 18; TEMP 36.5; O2SAT 100
--- NOTE | 2022-10-04 12:36 | ANE.PACU2 ---
Inpatient post-anesthesia follow up: Airway intact: Yes Vital signs: Temperature 97.7 F Pulse Rate 80 Respiratory Rate 18 Blood Pressure 104/86 Pulse Oximetry 100 Oxygen Delivery Me thod Room Air Oxygen Flow Rate 10 Fraction of Inspir ed Oxygen Hydration adequate: Yes Nausea and vomiting: No Pain level: 1 Mental status: Baseline
== END 2022-10-04 10:34 | disposition home or self-care (01) ==
PROVIDERS: PCP Family Medicine; Visit Provider Podiatrist Foot & Ankle Surgery
PROC: 0QBP0ZZ Excision of Left Metatarsal, Open Approach (ICD-10-PCS; CPT 28110; principal; 2022-10-04 09:00)
DX: M21.621 Bunionette of right foot (principal); M06.9 Rheumatoid arthritis, unspecified; E66.01 Morbid (severe) obesity due to excess calories; Z68.43 Body mass index [BMI] 50.0-59.9, adult; Z87.891 Personal history of nicotine dependence
CPT/HCPCS: 28308; 73620; 76000; 81025; 84703; C1713; C9290; J0690; J2250; J2704; J3010; J3490; J7030

== ENCOUNTER → 2022-10-24 14:51 | Outpatient (BNVA) | payer MEDICAID, SELFPAY | PROVIDERS: PCP Family Medicine; Visit Provider Podiatrist Foot & Ankle Surgery | DX: Z98.890 Other specified postprocedural states (principal); M21.621 Bunionette of right foot; M77.51 Other enthesopathy of right foot and ankle | CPT/HCPCS: 73630 ==

== ENCOUNTER → 2022-11-06 10:00 | Outpatient (BNVA) | payer MEDICAID, SELFPAY | PROVIDERS: PCP Family Medicine; Visit Provider Obstetrics & Gynecology | DX: R10.2 Pelvic and perineal pain (principal); N92.6 Irregular menstruation, unspecified | CPT/HCPCS: 84443 ==

== ENCOUNTER → 2022-11-21 13:29 | Outpatient (BNVA) | payer MEDICAID, SELFPAY | PROVIDERS: PCP Family Medicine; Visit Provider Podiatrist Foot & Ankle Surgery | DX: Z98.890 Other specified postprocedural states (principal); M21.621 Bunionette of right foot; M77.51 Other enthesopathy of right foot and ankle | CPT/HCPCS: 73630 ==

== ENCOUNTER → 2022-12-19 12:17 | Outpatient (BNVA) | payer MEDICAID, SELFPAY | PROVIDERS: PCP Family Medicine; Visit Provider Obstetrics & Gynecology | DX: N93.9 Abnormal uterine and vaginal bleeding, unspecified (principal); N83.202 Unspecified ovarian cyst, left side | CPT/HCPCS: 76830 ==

== ENCOUNTER 2023-01-15 08:15 | Outpatient (CLI) | payer MEDICAID, SELFPAY ==
[2023-01-15 09:03] LABS: Basophils # 0.1 10^3/uL (0.0-0.1); Basophils % 0.5 %; Eosinophils # 0.4 10^3/uL (0.0-0.8); Eosinophils % 3.7 %; Hematocrit 40.4 % (37.0-47.0); Hemoglobin 12.3 g/dL (11.5-15.3); Lymphocytes # 4.4 10^3/uL (0.8-4.8); Lymphocytes % 41.5 %; Mean Corpuscular HGB Conc 30.4 g/dL (30.0-36.0); Mean Corpuscular Hemoglobin 26.7 pg (28.0-34.0); Mean Corpuscular Volume 87.6 fl (81-99); Mean Platelet Volume 10.5 fL (7.4-10.4); Monocytes # 0.6 10^3/uL (0.2-0.9); Monocytes % 5.7 %; Neutrophils # 5.13 10^3/uL (1.8-7.7); Neutrophils % 48.2 %; Nucleated Red Blood Cells % 0 %; Platelet Count 324 10^3/cmm (130-400); Red Blood Count 4.61 10^6/uL (4.1-5.3); White Blood Count 10.6 10^3/uL (4.0-10.0)
[2023-01-15 09:21] LABS: Alanine Aminotransferase 15 U/L (0-33); Albumin Level 3.8 g/dL (3.5-5.2); Alkaline Phosphatase 68 U/L (35-105); Anion Gap 13.9 (5-19); Aspartate Amino Transferase 14 U/L (0-32); Blood Urea Nitrogen 13 mg/dL (6-20); Carbon Dioxide 24 mmol/L (22-29); Chloride 103 mmol/L (98-107); Globulin 3.4 g/dL (1.3-4.6); Glomerular Filtration Rate 118.2 mL/min (90-130); Glucose 95 mg/dL (65-115); Osmolality Calculated 284 mOsm/kg (285-295); Potassium 3.9 mmol/L (3.5-5.1); Sodium 137 mmol/L (136-145); Total Bilirubin 0.3 mg/dL (0.15-1.2); Total Protein 7.2 g/dL (6.6-8.7)
[2023-01-15 09:33] LABS: Erythrocyte Sedimentation Rate 38 mm/hr (0-15)
== END 2023-01-15 08:16 | disposition home or self-care (01) ==
LOC: LAB 08:18
PROVIDERS: PCP Family Medicine; Visit Provider Internal Medicine
DX: M06.9 Rheumatoid arthritis, unspecified (principal)
CPT/HCPCS: 36415; 80053; 85025; 85651; 86140

== ENCOUNTER 2023-01-20 13:25 | Outpatient (CLI) | payer MEDICAID, SELFPAY ==
--- NOTE | 2023-01-20 13:32 | XRR_ITS ---
PROCEDURE INFORMATION: Exam: XR Abdomen Exam date and time: 01/20/2023 1:43 PM Age: 27 years old Clinical indication: Condition or disease; Kidney or ureter condition; Calculus (stone) in kidney; Patient HX: RT renal stone; Additional info: Urolithiasis, kub @ [facility] 01/20/23 @ 130 appointment to follow TECHNIQUE: Imaging protocol: Radiologic exam of the abdomen. Views: Frontal supine view of the abdomen. 1 View. COMPARISON: CT abdomen pelvis w con* [id number] 08/09/2022 10:57 AM FINDINGS: Gastrointestinal tract: Normal. No bowel dilation. Organs: There are 2 renal stones projecting over the lower portion of the right renal hilum measuring up to 9 mm, unchanged. There are no suspicious calcifications detected along the course of the left tract. Bones/joints: Unremarkable. XR/XR KUB [id number] IMPRESSION: Stable right renal stones.
== END 2023-01-20 13:26 | disposition home or self-care (01) ==
LOC: RAD 13:27
PROVIDERS: PCP Family Medicine; Visit Provider Urology
DX: N20.0 Calculus of kidney (principal)
CPT/HCPCS: 74018; 81003

== ENCOUNTER 2023-02-03 09:40 | Outpatient (CLI) | payer MEDICAID, SELFPAY ==
--- NOTE | 2023-02-03 10:15 | US_ITS ---
WS: [id number] Pelvic ultrasound, 02/03/2023 Clinical Data: N93.9 - Abnormal uterine and vaginal bleeding, unspecified Comparison: Pelvic ultrasound, 01/06/2023 Findings: The uterus measures 11.3 cm x 6.3 cm x 4.6 cm. The endometrium is 1.4 cm. No intrauterine or abnormal intrauterine mass is seen. The cervix shows numerous nabothian cysts The left ovary measures 1.8 cm x 2.4 cm x 1.9 cm with several follicular cysts. The right ovary measures 3.6 cm x 2.1 cm x 1.7 cm with several follicular cysts. There is no fluid in the cul-de-sac. US/US pelv w/transvag [id number] Impression: Bilateral follicular cysts of the ovaries.
== END 2023-02-03 09:41 | disposition home or self-care (01) ==
LOC: RAD 09:45
PROVIDERS: PCP Family Medicine; Visit Provider Obstetrics & Gynecology
DX: N93.9 Abnormal uterine and vaginal bleeding, unspecified (principal); N83.02 Follicular cyst of left ovary; N83.01 Follicular cyst of right ovary
CPT/HCPCS: 76830; 76856

== ENCOUNTER 2023-02-18 09:14 | Day surgery (SDC) | payer MEDICAID, SELFPAY ==
--- NOTE | 2023-02-17 08:35 | P.ANESASSM_ITS ---
Pre-Anesthetic Assessment Height/Weight: Height 1.7 m Weight 154.221 kg Preop Diagnosis: Right tailor's bunion Operation Date: 02/18/23 09:00 Proposed Procedures p Hysteroscopy, dilation and curettage with Myosure [id number], R93.89(Not Applicable) - Elizabet Urena MD s Dilation And Curettage (D&C)(Not Applicable) - Elizabet Urena MD Familial anesthetic complications: None Social No alcohol and No tobacco Exam alert, oriented x 3, clear to auscultation bilaterally and regular rate & rhythm Airway Mallampati: Class II Dentition: full Pulmonary Asthma Hepatic fatty liver Metabolic Morbid Obesity [facility] [place] Rheumatoid Arthritis Anesthetic Plan ASA status: 3 Anesthesia: General Risk of > 500 ml blood loss (7ml/kg in children): No Medications/Allergies Home Medications Medication Instructions Recorded Confirmed Last Taken Type albuterol sulfate 90 mcg/actuation 1 - 2 puff inhalation Q4H PRN 09/26/21 02/17/23 10/03/22 History aerosol inhaler Shortness Of Breath fexofenadine 180 mg tablet 180 mg PO DAILY 09/26/21 02/17/23 02/15/23 History (Loyda Allergy) topiramate 25 mg tablet (Topamax) 25 mg PO BID 09/26/21 02/17/23 02/16/23 History venlafaxine 150 mg 150 mg PO QAM 11/27/21 02/17/23 02/16/23 History capsule,extended release 24 hr cyclobenzaprine 10 mg tablet 10 mg PO Q8H PRN Muscle Spasm 08/09/22 02/17/23 01/15/23 History folic acid 1 mg tablet 2 mg PO QAM #180 tabs 11/21/22 02/17/23 02/16/23 Rx prednisone 5 mg tablet See Rx Instructions .Route DAILY 12/09/22 02/17/23 01/20/23 Rx #45 tabs doxycycline hyclate 100 mg capsule 100 mg PO BID #60 caps 01/20/23 02/17/23 02/17/23 Rx methotrexate sodium 2.5 mg tablet 15 mg PO .qweek #30 tabs 01/20/23 02/17/23 02/11/23 Rx Allergies Allergy/AdvReac Type Severity Reaction Status Date / Time sumatriptan [From Imitrex] Allergy Severe THROAT Verified 02/17/23 08:18 SWELLING [facility] Anesthesia Medical History Bloody diarrhea Recurrent UTI Surgical History History of colonoscopy History of endoscopy History of tonsillectomy and adenoidectomy Family History Mother Hypertension Grandfather Colon cancer maternal Denies family history of Ovarian cancer Diabetes Heart disease Breast cancer Uterine cancer Thyroid disease Stroke Social History Smoking and tobacco status: former smoker Alcohol intake: never Marital status: Current occupational status: employed Female Reproductive History Date of last menstrual period: 02/15/23 Data Anesthesia Cardiac Studies: No Data to Display
[2023-02-18] VITALS (11 sets, daily range): BP systolic 108–151; BP diastolic 62–90; PULSE 52–80; RESP 16–18; TEMP 36.1–36.6; O2SAT 92–99
[2023-02-18 09:34] LABS: OR HCG Qualitative Urine Negative (Negative)
[2023-02-18] MEDS: sodium chloride 0.9% 1,000 ML 30 ML IV (09:42)
--- NOTE | 2023-02-18 09:47 | P.ANESUD_ITS ---
Pre-Anesthetic Update Pre-Anesthetic Assessment: Date of Surgery/Procedure: 02/18/23 Preop Karen gnosis: AUB, Pelvic pain Proposed Procedure: Operation Date: 02/18/23 11:15 Proposed Procedures p Hysteroscopy, dilation and curettage with Myosure [id number], R93.89(Not Applicable) - Elizabet Urena MD s Dilation And Curettage (D&C)(Not Applicable) - Elizabet Urena MD Any changes to Pre-Anesthetic Assessment?: No Last Intake: Intake Last Liquid Date 02/17/23 Last Liquid Time 21:00 Last Solid Date 02/17/23 Last Solid Time 21:00 Vitals: Temperature 97.8 F 02/18/23 09:25 Pulse Rate 80 02/18/23 09:25 Respiratory Rate 18 02/18/23 09:25 Blood Pressure 137/90 02/18/23 09:25 Blood Pressure Bethany n 105 02/18/23 09:25 Pulse Oximetry 99 02/18/23 09:25 Oxygen Delivery Me thod 02/18/23 09:25 Exam: Pre-Anes Outpt Exam: alert, oriented x 3, clear to auscultation bilaterally and regular rate & rhythm Cardiac Studies: No Data to Display
--- NOTE | 2023-02-18 10:39 | W.PM.OPSUD ---
Surgery/Procedure H&P Update DATE OF PROCEDURE: February 18, 2023 DATE H&P PERFORMED: 02/17/23 H&P UPDATE INFORMATION: I have reviewed H&P completed within last 30 days, I have examined patient prior to procedure and No changes to prior documentation PREOP DIAGNOSIS: AUB, Pelvic pain PLANNED PROCEDURE: Operation Date: 02/18/23 11:15 Proposed Procedures p Hysteroscopy, dilation and curettage with Myosure [id number], R93.89(Not Applicable) - Elizabet Urena MD s Dilation And Curettage (D&C)(Not Applicable) - Elizabet Urena MD Related Problem List Diagnoses (1) Morbid obesity: (2) Thickened endometrium:
[2023-02-18] MEDS: ceFAZolin 3,000 MG in sodium chloride 0.9% (100 ml) 100 ML 200 MG IV (10:45)
--- NOTE | 2023-02-18 11:33 | PM.OP ---
Operative Report Date of procedure: February 18, 2023 Pre-op diagnosis: Preop Diagnosis AUB, Pelvic pain Post-op diagnosis: same Post-op findings: Thickened endometrium Procedure done: hysteroscopy, D&C with myosure Specimens removed/disposition: endometrial curettings to pathology Surgeon: Elizabet Urena Anesthesia: General Estimated blood loss (mL): 5 IV fluids (mL): 900 Complications: none Findings: 85 ml hysteroscopy deficit Condition: stable Disposition: PACU Procedure: The patient was taken to the operating room where monitored anesthesia was administered and to be adequate. She was prepped and draped in the normal sterile fashion in the dorsal lithotomy position in [facility]. A weighted speculum was placed into the vagina and the anterior lip of the cervix grasped with a single-tooth tenaculum. The uterus was sounded to 8 cm. The cervix was dilated to 16 Indonesian. The hysteroscope was advanced into the endometrial cavity. There was excessive tissue visualized. The MyoSure device was activated and the tissue was removed. Pictures were taken pre and post procedure. All instruments were removed. The patient tolerated the procedure well. Sponge lap and needle counts were correct x3. She was taken to the recovery room in stable condition.
--- NOTE | 2023-02-18 11:39 | PM.DCS ---
Discharge Providers Date of Admission: 02/18/23 Date of Discharge: February 18, 2023 Attending Provider at Discharge: Elizabet Urena MD Primary Care Provider: Duncan Raza MD Diagnoses at Discharge Discharge Diagnosis (1) Morbid obesity: Status: Acute (2) Thickened endometrium: Status: Acute Reason for Visit Reason for Visit: R93.89 abnormal finding on diagnostic imaging of o Hospital Course Hospital Course The patient was admitted for surgery. She did well postoperatively and was ready for discharge. Discharge Data Studies Completed and Pending Laboratory Results Urine HCG, Qual Negative (Negative) 02/18/23 09:33 Vitals Last Vital Signs Temp 97.8 F 02/18/23 09:25 Pulse 80 02/18/23 09:25 Resp 18 02/18/23 09:25 BP 137/90 02/18/23 09:25 Pulse Ox 99 02/18/23 09:25 O2 Del Method 02/18/23 09:25 Discharge Plan Discharge Patient Disposition: Home Condition: Stable Prescriptions: Continued topiramate [Topamax] 25 mg tablet 25 mg PO BID fexofenadine [Loyda Allergy] 180 mg tablet 180 mg PO DAILY albuterol sulfate 90 mcg/actuation HFA aerosol inhaler 1 - 2 puff inhalation Q4H PRN (Reason: Shortness Of Breath) venlafaxine 150 mg capsule,extended release 24hr 150 mg PO QAM folic acid 1 mg tablet 2 mg PO QAM Qty: 180 0RF doxycycline hyclate 100 mg capsule 100 mg PO BID Qty: 60 6RF prednisone 5 mg tablet See Rx Instructions .ROUTE DAILY Qty: 45 0RF Rx Instructions: take 1 - 1.5 tab daily daily; methotrexate sodium 2.5 mg tablet 15 mg PO .qweek Qty: 30 2RF cyclobenzaprine 10 mg tablet 10 mg PO Q8H PRN (Reason: Muscle Spasm) Discharge Orders: Discharge Order (Routine); Ordered 02/18/23 Ordered By: Elizabet Urena Discharge Attestations Time Spent in Discharge Care*: less than 30 min Quality Metrics Clinical Quality Measures [ No reported AMI, CVA or VTE this stay] Coding Level of Care Code Acute Code for Chg Fwd Diagnoses Morbid obesity E66.01 Thickened endometrium R93.89
--- NOTE | 2023-02-18 12:41 | ANE.PACU2 ---
Inpatient post-anesthesia follow up: Airway intact: Yes Vital signs: Temperature 97.4 F Pulse Rate 61 Respiratory Rate 18 Blood Pressure 125/64 Pulse Oximetry 93 Oxygen Delivery Me thod Room Air Oxygen Flow Rate 2 Fraction of Inspir ed Oxygen Hydration adequate: Yes Nausea and vomiting: No Pain level: 1 Mental status: Baseline
== END 2023-02-18 12:45 | disposition home or self-care (01) ==
PROVIDERS: Anesthesiology; PCP Family Medicine; Visit Provider Obstetrics & Gynecology
PROC: 0UDB8ZZ Extraction of Endometrium, Via Natural or Artificial Opening Endoscopic (ICD-10-PCS; CPT 58558; principal; 2023-02-18 11:05)
PROC: (CPT 58120; 2023-02-18 11:05)
DX: N93.9 Abnormal uterine and vaginal bleeding, unspecified (principal); E66.01 Morbid (severe) obesity due to excess calories; Z68.43 Body mass index [BMI] 50.0-59.9, adult; M06.9 Rheumatoid arthritis, unspecified; Z87.891 Personal history of nicotine dependence
CPT/HCPCS: 58558; 84703; 88305; J0330; J0690; J1100; J1200; J1885; J2250; J2405; J2704; J2710; J3010; J3490; J7030

== ENCOUNTER 2023-03-20 16:38 | Emergency (ER) | payer MEDICAID, SELFPAY ==
[2023-03-20 17:05] VITALS: BP 160/124; PULSE 77; RESP 18; TEMP 36.7; O2SAT 98; BMI 53.2
--- NOTE | 2023-03-20 17:52 | XRR_ITS ---
PROCEDURE INFORMATION: Exam: XR Right Hand Exam date and time: 03/20/2023 6:19 PM Age: 27 years old Clinical indication: Injury or trauma; Fall; Sprain or strain; Hand; Right TECHNIQUE: Imaging protocol: Radiologic exam of the right hand. Views: 3 or more views. COMPARISON: No relevant prior studies available. FINDINGS: Bones/joints: Normal. Soft tissues: Normal. XR/XR hand RT min 3V* [id number] IMPRESSION: No acute findings.
--- NOTE | 2023-03-20 17:52 | ED_ITS ---
HPI - Extremity Problem General: Chief complaint: Extremity Injury, Upper Stated complaint: right hand pain Time Seen by Provider: 03/20/23 17:51 History of Present Illness: 27-year-old female comes in today with injury to the right hand. Patient reports that she was walking her dog when the dog took off around the corner causing it to jerk her hand and twist up with her finger. Patient reports pain and discomfort to the index finger and dorsal hand. Patient does have some bru ising but no obvious deformity. Associated symptoms: Deny chest pain or fever(s) Review of Systems Const: Denies: fever(s) Card: Denies: chest pain Resp: Denies: dyspnea Musc: Reports: extremity pain PFS ED PFSH: Medical History Bloody diarrhea COVID Recurrent UTI Right upper quadrant pain Surgical History History of bunionectomy History of colonoscopy History of endoscopy History of tonsillectomy and adenoidectomy Family History Mother Hypertension Grandfather Colon cancer maternal Denies family history of Ovarian cancer Diabetes Heart disease Breast cancer Uterine cancer Thyroid disease Stroke Social History Smoking and tobacco status: former smoker Alcohol intake: never Substance/Drug Use: never Marital status: Current occupational status: employed Physical Exam Const: COMMON NORMALS: patient oriented x3 HENMT: COMMON NORMALS: normocephalic HEAD & SCALP: normocephalic Neck/C-Spine: COMMON NORMALS: full ROM Resp: COMMON NORMALS: normal respiratory effort Cardio: COMMON NORMALS: regular rate RATE: regular rate Extremity: RIGHT UPPER EXTREMITY: Yes hand & digits (Swelling and mild bruising dorsal right hand) Neuro: COMMON NORMALS: patient oriented x3 Skin: COMMON NORMALS: turgor normal GENERAL SKIN EXAM: turgor normal Course Vital Signs: Vital signs: Vital Signs Temperature 98.0 F 03/20/23 17:05 Pulse Rate 77 03/20/23 17:05 Respiratory Rate 18 03/20/23 17:05 Blood Pressure 160/124 03/20/23 17:05 Pulse Oximetry 98 03/20/23 17:05 Oxygen Delivery Me thod Room Air 03/20/23 17:05 MDM - Extremity (Nontraumatic) Medical Decision Making 27-year-old female comes in today for complaints of injury to the right hand. On exam patient has swelling and bruising to the dorsal right hand at the base of the index finger. Patient has range of motion of the finger without difficulty. Distal sensation and cap refill is intact. No obvious deformity is noted. Differential diagnosis includes fracture, dislocation, sprain, contusion. X-rays noted no fracture or dislocation. Reviewed exam with patient with recommendations for treatment and follow-up. Discharge Plan Discharge Patient Disposition: Home Clinical Impression: Interphalangeal joint, hand sprain Qualifiers: Encounter type: initial encounter Finger: index finger Laterality: right Qualified Code(s): S63.630A - Sprain of interphalangeal joint of right index finger, initial encounter Condition: Stable Prescriptions: No Action topiramate [Topamax] 25 mg tablet 25 mg PO BID fexofenadine [Loyda Allergy] 180 mg tablet 180 mg PO DAILY albuterol sulfate 90 mcg/actuation HFA aerosol inhaler 1 - 2 puff inhalation Q4H PRN (Reason: Shortness Of Breath) venlafaxine 150 mg capsule,extended release 24hr 150 mg PO QAM metronidazole 500 mg tablet 500 mg PO BID Qty: 20 0RF cephalexin 500 mg capsule 500 mg PO TID Qty: 30 0RF folic acid 1 mg tablet 2 mg PO QAM Qty: 180 0RF doxycycline hyclate 100 mg capsule 100 mg PO BID Qty: 60 6RF prednisone 5 mg tablet See Rx Instructions .ROUTE DAILY Qty: 45 0RF Rx Instructions: take 1 - 1.5 tab daily daily; methotrexate sodium 2.5 mg tablet 15 mg PO .qweek Qty: 30 2RF cyclobenzaprine 10 mg tablet 10 mg PO Q8H PRN (Reason: Muscle Spasm) Discharge Orders: Discharge ED (Routine); Ordered 03/20/23 Ordered By: Rony Gordon Referrals: Duncan Raza MD [Primary Care Provider] - Patient Instructions: Hand Sprain (ED) Activity Restrictions/Additional Instructions: 27-year-old female comes in today for complaints of injury to the right hand. On exam patient has swelling and bruising to the dorsal right hand at the base of the index finger. Patient has range of motion of the finger without difficulty. Distal sensation and cap refill is intact. No obvious deformity is noted. Differential diagnosis includes fracture, dislocation, sprain, contusion. X-rays noted no fracture or dislocation. Reviewed exam with patient with recommendations for treatment and follow-up. Coding Level of Care Code ED Manufacturing Engineer Supervisor for Brittany Barragan
[2023-03-20] MEDS: HYDROcodone-acetaminophen 7.5-325 mg Tablet 1 TAB PO (18:02)
[2023-03-20 18:42] VITALS: BP 160/124; PULSE 77; RESP 18; TEMP 36.7; O2SAT 98
== END 2023-03-20 18:43 | disposition home or self-care (01) ==
PROVIDERS: Emergency Provider Nurse Practitioner Family; PCP Family Medicine
DX: S63.630A Sprain of interphalangeal joint of right index finger, initial encounter (principal); Z87.891 Personal history of nicotine dependence; X50.1XXA Overexertion from prolonged static or awkward postures, initial encounter
CPT/HCPCS: 73130; 99283

== ENCOUNTER 2023-08-04 08:06 | Outpatient (CLI) | payer MEDICAID, SELFPAY ==
--- NOTE | 2023-08-04 08:45 | USCV_ITS ---
Elizabet Anderson Age: 28 Gender: F : 1995 Exam Date: 08/04/2023 08:23 Ordering Phys: Samir Mooney MD Technologist: Vickey Degroot Exam Location: [facility] [place] Indication: RO pulmonary HTN BP: 125 / 75 HR: 53 Rhythm: Sinus Technical Quality: Adequate MEASUREMENTS (Male / Female) Normal Values 2D ECHO LV Diastolic Diameter PLAX 4.5 cm 4.2 - 5.9 / 3.9 - 5.3 cm LV Systolic Diameter PLAX 2.4 cm IVS Diastolic Thickness 1.2 cm 0.6 - 1.0 / 0.6 - 0.9 cm IVS Systolic Thickness 1.6 cm LVPW Diastolic Thickness 1.3 cm 0.6 - 1.0 / 0.6 - 0.9 cm LVPW Systolic Thickness 1.6 cm LVOT Diameter 2.0 cm LV Ejection Fraction 2D Teich 78.9 % LV Ejection Fraction MOD 2C 64.0 % LV Ejection Fraction 2C AL 63.4 % LA Diameter 4.1 cm LA Width 3.9 cm Aorta at Sinotubular Diameter 2.9 cm M-MODE Aortic Annulus Diameter 2.9 cm LA Ao Ratio MM 1.6 MV E Point Septal Separation 1.6 cm DOPPLER AV Peak Velocity 180.0 cm/s LVOT Peak Velocity 99.0 cm/s AV Area Cont Eq vti 2.0 cm squared AV Area Cont Eq pk 1.8 cm squared MV Area PHT 3.3 cm squared Mitral E to A Ratio 1.8 MV E' Velocity 63.5 cm/s Mitral E to MV E' Ratio 7.6 Mitral E to LV E' Lateral Ratio 6.3 Mitral E to LV E' Septal Ratio 9.9 TR Peak Velocity 250.3 cm/s TR Peak Gradient 25.1 mmHg TV Peak E Velocity 97.0 cm/s Right Atrial Pressure 3.0 mmHg Pulmonary Artery Systolic Pressu 28.1 mmHg RV Acceleration Time 0.1 s FINDINGS Left Ventricle Left ventricle is normal in size. LV systolic function is normal with EF of 50-55 %. No regional wall motion abnormalities are seen. Right Ventricle Normal in size and function Right Atrium Normal in size Left Atrium Normal size Mitral Valve Structurally normal mitral valve. Mild mitral regurgitation Aortic Valve Structurally normal aortic valve. No significant stenosis or regurgitation. Tricuspid Valve Mild tricuspid regurgitation. Pulmonary artery systolic pressure is normal Pulmonic Valve Not well visualized Pericardium Normal Aorta Normal in size IVC Not well visualized CONCLUSIONS LV systolic function is normal with EF of 50 to 55%. Mild mitral regurgitation. Mild tricuspid regurgitation. No comparison studies are available Librado Smith MD (Electronically Signed) Final Date: 09 August 2023 21:20 S
== END 2023-08-04 08:07 | disposition home or self-care (01) ==
PROVIDERS: PCP Family Medicine; Visit Provider Internal Medicine Pulmonary Disease
DX: I10 Essential (primary) hypertension (principal); I08.1 Rheumatic disorders of both mitral and tricuspid valves
CPT/HCPCS: 93306

== ENCOUNTER → 2023-08-13 13:28 | Outpatient (BNVA) | payer MEDICAID, SELFPAY | PROVIDERS: PCP Family Medicine; Visit Provider Internal Medicine | DX: R07.9 Chest pain, unspecified (principal); R00.1 Bradycardia, unspecified | CPT/HCPCS: 93005 ==

== ENCOUNTER 2024-03-20 14:22 | Emergency (ER) | payer MEDICAID, SELFPAY ==
[2024-03-20 14:27] VITALS: BP 154/89; PULSE 70; RESP 17; TEMP 36.3; O2SAT 98; BMI 51.7
--- NOTE | 2024-03-20 15:14 | USR_ITS ---
PROCEDURE INFORMATION: Exam: US Abdomen, Limited; Right Upper Quadrant Exam date and time: 03/20/2024 4:15 PM Age: 28 years old Clinical indication: Abdominal pain; Acute; Additional info: Right upper quadrant pain, concern for cholecystitis TECHNIQUE: Imaging protocol: Real time ultrasound of the abdomen with image documentation. Limited exam focused on the right upper quadrant. COMPARISON: US gall bladder [id number] 03/28/2022 3:22 PM FINDINGS: Liver: The liver is mildly enlarged up to 21.6 cm sagittal craniocaudal length. Mildly echogenic parenchyma. Smooth contour. No obvious focal liver lesion. Gallbladder: Gallbladder wall is borderline thickened, without luminal dilatation, shadowing stone or pericholecystic fluid. No intrahepatic or common duct biliary dilatation. The CBD measures 4 mm. Biliary ducts: See Gallbladder finding. Pancreas: Partially imaged pancreas without obvious focal lesion or duct dilatation in the field of view. The tail is obscured by bowel gas. Right kidney: Right kidney is normal in size measuring 2.2 x 5 x 5.4 cm. Normal renal parenchymal echogenicity and cortical thickness. No hydronephrosis or large stone. No contour deforming mass. US/US gall bladder [id number] IMPRESSION: 1. Mild hepatomegaly with evidence of steatosis. 2. Borderline gallbladder wall thickening may be due to nonfasting state. No other significant sonographic abnormality.
--- NOTE | 2024-03-20 15:16 | ED_ITS ---
HPI - Abdominal Pain 2 General: Chief Complaint: Abdominal Pain Stated Complaint: abd pains, lower back pains Time Seen by Provider: 03/20/24 15:09 History of Present Illness: 28-year-old female with a history of hyp ertension, asthma and obesity who presents to the emergency room with right upper quadrant/epigastric pain. She says this been going on for almost a week now but since last night she started having nausea and vomiting. The pain has become much worse. It radiates into her back. She is never had any abdominal surgeries. No fevers. No dysuria. No chest pain. No shortness of breath. No altered mental status. Review of Systems 2 Narrative: Constitutional symptoms: Negative except as documented in HPI. Skin symptoms: Negative except as documented in HPI. Eye symptoms: Negative except as documented in HPI. ENMT symptoms: Negative except as documented in HPI. Respiratory symptoms: Negative except as documented in HPI. Cardiovascular symptoms: Negative except as documented in HPI. Gastrointestinal symptoms: Negative except as documented in HPI. Genitourinary symptoms: Negative except as documented in HPI. Musculoskeletal symptoms: Negative except as documented in HPI. Neurologic symptoms: Negative except as documented in HPI. Psychiatric symptoms: Negative except as documented in HPI. Endocrine symptoms: Negative except as documented in HPI. PFSH ED 2 PFSH: Medical History Bloody diarrhea Right upper quadrant pain Recurrent UTI COVID Surgical History History of bunionectomy History of colonoscopy History of endoscopy History of tonsillectomy and adenoidectomy Family History Mother Hypertension Grandfather Colon cancer maternal Denies family history of Ovarian cancer Diabetes Heart disease Breast cancer Uterine cancer Thyroid disease Stroke Social History Smoking and tobacco/nicotine status: former use of tobacco/nicotine Quit status (tobacco/nicotine): has quit using Year quit tobacco: 2022 Former quit date comment: 1ppd X 12 years Alcohol intake: never Substance/Drug Use: never Marital status: Current occupational status: employed Physical Exam 2 Narrative: EXAM NARRATIVE: General: Alert, no acute distress. Skin: Warm, dry. Head: Normocephalic, atraumatic. Neck: Supple, trachea midline. Eye: Extraocular movements are intact. Ears, nose, mouth and throat: mucosa moist. Cardiovascular: Regular, Normal peripheral perfusion. Respiratory: Lungs are clear to auscultation, respirations are non-labored, breath sounds are equal, Symmetrical chest wall expansion. Gastrointestinal: Soft, right upper current pain to palpation, Non distended, Normal bowel sounds. Musculoskeletal: Normal ROM, no deformity. Neurological: Alert and oriented, No focal neurological deficit observed. Psychiatric: Cooperative, appropriate mood & affect. Course 2 Vital Signs: Vital signs: Vital Signs Temperature 97.4 F L 03/20/24 14:27 Pulse Rate 69 03/20/24 16:14 Respiratory Rate 16 03/20/24 16:14 Blood Pressure 133/82 03/20/24 16:14 Pulse Oximetry 96 03/20/24 16:14 Oxygen Delivery Me thod Room Air 03/20/24 16:14 MDM - Abdominal Pain Medical Decision Making Differential diagnosis for patient presenting with right upper quadrant abdominal pain including but not limited to and based on the above HPI, review of systems and physical exam: Cholelithiasis or cholecystitis. Hepatitis. Diverticulitis. Constipation. Ureterolithiasis. Urinary tract infection. Appendicitis. colitis. small bowel obstruction. crohn's flare. pancreatitis. gastritis. peptic ulcer. Aortic disection. Workup including imaging and lab work replaced based on the above differential, history and exam to evaluate differential diagnosis Lab Review: Laboratory results were reviewed and interpreted by myself the emergency room physician. White count is 11.6. Hemoglobin is 12.2. BUN and creatinine are 14 and 0.7. Urinalysis has hematuria and some white cells Ultrasound of the gallbladder: Contracted gallbladder. Patient had eaten recently. Hepatosteatosis. CT of the abdomen pelvis with contrast 1. New 6 mm right renal pelvic stone compared to 08/09/2022 CT. Mild renal pelvic urothelial thickening . Correlation for superimposed UTI/pyelitis suggested. Additional 9 mm right renal stones unchanged. No hydronephrosis. 2. Incidental and chronic findings include mild hepatomegaly, multiple small colonic diverticuli and 2.1 cm left ovarian cyst. Consultation: I discussed the patient with the urologist Dr. Eliseo Laguerre. He will see the patient in clinic next week. She will call for appointment I reviewed the patient's medical record. Reexamination: Patient appears more comfortable after receiving Toradol, fluids and Zofran. She also received some Rocephin. No increased work of breathing. Pain is somewhat improved. Assessment and plan: Ureterolithiasis Urinary tract infection Dehydration -Normal saline bolus, Toradol, Zofran and IV Rocephin in the emergency room. - Discharged home - Discussed findings and plan with patient. Answered any questions. - All laboratory values were reviewed and interpreted personally by myself, the ER physician - All imaging was reviewed and interpreted personally by myself, the ER physician. - Evaluation and treatment of this problem were appropriate in the emergency setting Lab Data 03/20/24 15:27 03/20/24 15:27 Labs/Radiology: Radiology Impressions Gallbladder Ultrasound 03/20/24 15:14 IMPRESSION: 1. Mild hepatomegaly with evidence of steatosis. 2. Borderline gallbladder wall thickening may be due to nonfasting state. No other significant sonographic abnormality. Abdomen/Pelvis CT 03/20/24 16:35 IMPRESSION: 1. New 6 mm right renal pelvic stone compared to 08/09/2022 CT. Mild renal pelvic urothelial thickening . Correlation for superimposed UTI/pyelitis suggested. Additional 9 mm right renal stones unchanged. No hydronephrosis. 2. Incidental and chronic findings include mild hepatomegaly, multiple small colonic diverticuli and 2.1 cm left ovarian cyst. COMMENTS: Consistent with the [employer]'s Incidental Findings Committee white paper (J Am Luther Radiol 2018): Any incidental renal lesion less than 1 cm or classified as too small to characterize, or any incidental cystic renal lesion characterized as simple-appearing, is likely benign. No follow-up imaging is recommended for these lesions per consensus recommendations based on imaging criteria. Laboratory Results WBC 11.63 10^3/uL (3.29-11.43) H 03/20/24 15: RBC 4.39 10^6/uL (3.85-5.65) 03/20/24 15: Hgb 12.20 g/dL (11.27-16.99) 03/20/24 15: Hct 39.1 % (36-47) 03/20/24 15: MCV 89.1 fl (85-98) 03/20/24 15: MCH 27.8 pg (27-33) 03/20/24 15:27 MCHC 31.2 g/dL (30-55) 03/20/24 15: RDW 13.2 % (12.1-15.1) 03/20/24 15: Plt Count 361 10^3/cmm (157-399) 03/20/24 15: MPV 10.2 fL (7.4-10.4) 03/20/24 15: Neut % (Auto) 54.2 % 03/20/24 15: Lymph % (Auto) 37.4 % 03/20/24 15: Izard % (Auto) 5.4 % 03/20/24 15: Eos % (Auto) 2.3 % 03/20/24: Baso % (Auto) 0.3 % 03/20/24: Neut # (Auto) 6.29 10^3/uL (1.8-7.7) 03/20/24: Lymph # (Auto) 4.4 10^3/uL (0.8-4.8) 03/20/24: Izard # (Auto) 0.6 10^3/uL (0.2-0.9) 03/20/24: Eos # (Auto) 0.3 10^3/uL (0.0-0.8) 03/20/24: Baso # (Auto) 0.0 10^3/uL (0.0-0.1) 03/20/24: Nucleated RBC % (auto) 0 % 03/20/24: Nucleated RBCs # 0.0 /100WBC 03/20/24 15: Sodium 142 mmol/L (136-145) 03/20/24 15: Potassium 3.5 mmol/L (3.5-5.1) 03/20/24 15: Chloride 108 mmol/L (98-107) H 03/20/24 15: Carbon Dioxide 25 mmol/L (22-29) 03/20/24 15: Anion Gap 12.5 (5-19) 03/20/24 15: BUN 14 mg/dL (6-20) 03/20/24 15: Creatinine 0.7 mg/dL (0.5-0.9) 03/20/24 15: GFR Calculation 98.3 mL/min (90-130) 03/20/24 15: Glucose 90 mg/dL (65-115) 03/20/24 15: Calculated Osmolality 294 mOsm/kg (285-295) 03/20/24 15: Calcium 8.6 mg/dL (8.5-10.5) 03/20/24 15: Total Bilirubin 0.2 mg/dL (0.15-1.2) 03/20/24 15: AST 11 U/L (0-32) 03/20/24 15: ALT 13 U/L (0-33) 03/20/24 15: Alkaline Phosphatase 71 U/L (35-105) 03/20/24 15: Total Protein 7.2 g/dL (6.6-8.7) 03/20/24 15: Albumin 3.9 g/dL (3.5-5.2) 03/20/24 15: Globulin 3.3 g/dL (1.3-4.6) 03/20/24 15: Lipase 19 U/L (13-60) 03/20/24 15:27 HCG, Qual Cancelled 03/20/24 14:40 HCG, Qual Negative (Negative) 03/20/24 14:40 Urine Color Yellow (Yellow) 03/20/24 14:40 Urine Appearance Sl hazy (CLEAR) A 03/20/24 14:40 Urine pH 5 (5-7) 03/20/24 14:40 Ur Specific [place] 1.025 (1.005-1.030) 03/20/24 14:40 Urine Protein 1+ (Negative) H 03/20/24 14:40 Urine Glucose (UA) Norm (Normal) 03/20/24 14:40 Urine Ketones Negative (Negative) 03/20/24 14:40 Urine Blood 3+ (Negative) H 03/20/24 14:40 Urine Nitrate Negative (Negative) 03/20/24 14:40 Urine Bilirubin Neg (Negative) 03/20/24 14:40 Urine Urobilinogen Norm mg/dL (Negative) 03/20/24 14:40 Ur Leukocyte Esterase Trace (Negative) H 03/20/24 14:40 Urine RBC 25-40 /hpf (0-2) H 03/20/24 14:40 Urine WBC 15-25 /hpf (0-5) H 03/20/24 14:40 Ur Squamous Epith Cells 0-4 /hpf (0-5) H 03/20/24 14:40 Amorphous Sediment Not Reportable 03/20/24 14:40 Urine Bacteria 1+ /hpf (NONE) H 03/20/24 14:40 All radiology interpretation(s) finalized by discharge Discharge Plan Discharge Patient Disposition: Home Clinical Impression: Ureterolithiasis, Urinary tract infection Condition: Stable Prescriptions: New cephalexin 500 mg capsule 500 mg PO BID 10 Days Qty: 20 0RF hydrocodone-acetaminophen 5-325 mg tablet 1 tab PO Q6H PRN (Reason: pain) Qty: 20 0RF ondansetron 8 mg tablet,disintegrating 8 mg PO .q6 PRN (Reason: nausea and vomiting) Qty: 14 0RF Flomax 0.4 mg capsule 0.4 mg PO DAILY Qty: 30 0RF Miralax 17 gram/dose powder 17 g PO DAILY Qty: 510 0RF Rx Instructions: Take 1 scoop daily while taking pain medications. No Action fexofenadine [Loyda Allergy] 180 mg tablet 180 mg PO DAILY albuterol sulfate 90 mcg/actuation HFA aerosol inhaler 1 - 2 puff inhalation Q4H PRN (Reason: Shortness Of Breath) venlafaxine 150 mg capsule,extended release 24hr 150 mg PO QAM isosorbide mononitrate 20 mg tablet 20 mg PO BID Rx Instructions: give doses 7 hrs apart topiramate [Topamax] 25 mg tablet 25 mg PO BID pantoprazole 20 mg tablet,delayed release (DR/EC) 20 mg PO DAILY PRN folic acid 1 mg tablet 2 mg PO QAM Qty: 180 0RF fluticasone propion-salmeterol [Advair Diskus] 500-50 mcg/dose blister with device 1 inh inhalation BID Qty: 60 6RF Spiriva with HandiHaler 18 mcg capsule, w/inhalation device 1 cap inhalation DAILY Qty: 60 6RF Rx Instructions: puncture 1 cap using device; one dose = 2 inhalations prednisone 5 mg tablet See Rx Instructions .ROUTE DAILY Qty: 45 0RF Rx Instructions: take 1 - 1.5 tab daily daily; methotrexate sodium 2.5 mg tablet 15 mg PO .qweek Qty: 30 2RF prednisone 10 mg tablet 10 mg PO DAILY Qty: 11 0RF Rx Instructions: 2 tabs x 10 mg = 20 mg x 3 days 1 tab x 10 mg = 10 mg x 5 days cyclobenzaprine 10 mg tablet 10 mg PO Q8H PRN (Reason: Muscle Spasm) Discharge Orders: Discharge ED (Routine); Ordered 03/20/24 Ordered By: Claudette Cruz Referrals: Eliseo Laguerre [Referring] - ( Call for appointment with urology. If fever (temp >100.4) develops return to the emergency room immediately, as this is an emergency. Take nausea medication prior to taking pain medications. ) Duncan Raza MD [Primary Care Provider] - (You have been screened and evaluated and felt safe for discharge. Health conditions do change or evolve sometimes and as such it is important that you follow up with your Primary Doctor to be re checked, 3-5 days is a general good time frame for follow up. You are always welcome to return to the ED for re assessment if your symptoms are worsening or you have new concerns) Discharge Diet: Advance as tolerated Discharge Activity: Increase activity as tolerated Patient Instructions: Kidney Stones (ED), Opioid Safety, Pain Management Coding Level of Care Code ED Education Reporter for Brittany Barragan
[2024-03-20] MEDS: sodium chloride 0.9% 1,000 ML 999 ML IV (15:34)
[2024-03-20 15:39] LABS: Glucose Urine UA Norm (Normal); Specific Gravity, Urine 1.025 (1.005-1.030); Urine Appearance SL Hazy (CLEAR); Urine Color Yellow (Yellow); pH Urine 5 (5-7)
[2024-03-20 15:39] LABS: Basophils % 0.3 %; Eosinophils # 0.3 10^3/uL (0.0-0.8); Eosinophils % 2.3 %; Hematocrit 39.1 % (36-47); Lymphocytes # 4.4 10^3/uL (0.8-4.8); Lymphocytes % 37.4 %; Mean Corpuscular HGB Conc 31.2 g/dL (30-55); Mean Corpuscular Hemoglobin 27.8 pg (27-33); Mean Corpuscular Volume 89.1 fl (85-98); Mean Platelet Volume 10.2 fL (7.4-10.4); Monocytes # 0.6 10^3/uL (0.2-0.9); Monocytes % 5.4 %; Neutrophils # 6.29 10^3/uL (1.8-7.7); Neutrophils % 54.2 %; Nucleated Red Blood Cells % 0 %; Platelet Count 361 10^3/cmm (157-399); Red Blood Count 4.39 10^6/uL (3.85-5.65); Red Cell Distribution Width 13.2 % (12.1-15.1); White Blood Count 11.63 10^3/uL (3.29-11.43)
[2024-03-20 15:40] LABS: Add Urine Microscopic? YES; Bacteria Urine 1+ /hpf; Bilirubin Urine Neg (Negative); Blood Urine 3+ (Negative); Ketones Urine Negative (Negative); Leukocyte Esterase Urine Trace (Negative); Nitrate Urine Negative (Negative); Protein Urine 1+ (Negative); RBC Urine 25-40 /hpf (0-2); Squamous Epithelial Cell Urine 0-4 /hpf (0-5); Urobilinogen Urine Norm (Negative); WBC Urine 15-25 /hpf (0-5)
[2024-03-20 15:41] LABS: Add Urine Culture? Yes
[2024-03-20] MEDS: ondansetron 2 mg/ML SDV 2 mL 4 MG IVP (15:44)
[2024-03-20] MEDS: ketorolac 30 mg/mL INJ IVP (15:44)
[2024-03-20 16:02] LABS: Alanine Aminotransferase 13 U/L (0-33); Albumin Level 3.9 g/dL (3.5-5.2); Alkaline Phosphatase 71 U/L (35-105); Anion Gap 12.5 (5-19); Aspartate Amino Transferase 11 U/L (0-32); Blood Urea Nitrogen 14 mg/dL (6-20); Calcium 8.6 mg/dL (8.5-10.5); Carbon Dioxide 25 mmol/L (22-29); Chloride 108 mmol/L (98-107); Creatinine Clr Calc Pharmacy 179.6424; Globulin 3.3 g/dL (1.3-4.6); Glomerular Filtration Rate 98.3 mL/min (90-130); Glucose 90 mg/dL (65-115); Lipase 19 U/L (13-60); Osmolality Calculated 294 mOsm/kg (285-295); Potassium 3.5 mmol/L (3.5-5.1); Sodium 142 mmol/L (136-145); Total Bilirubin 0.2 mg/dL (0.15-1.2); Total Protein 7.2 g/dL (6.6-8.7)
[2024-03-20 16:12] LABS: Slide Review Slide Review Perform
[2024-03-20 16:14] VITALS: BP 133/82; PULSE 69; RESP 16; O2SAT 96
--- NOTE | 2024-03-20 16:35 | CTR_ITS ---
PROCEDURE INFORMATION: Exam: CT Abdomen And Pelvis With Contrast Exam date and time: 03/20/2024 5:04 PM Age: 28 years old Clinical indication: Abdominal pain; Generalized TECHNIQUE: Imaging protocol: Computed tomography of the abdomen and pelvis with contrast. Radiation optimization: All CT scans at this facility use at least one of these dose optimization techniques: automated exposure control; mA and/or kV adjustment per patient size (includes targeted exams where dose is matched to clinical indication); or iterative reconstruction. Contrast material: OMNI 350; Contrast volume: 100 ml; Contrast route: INTRAVENOUS (IV); COMPARISON: CT abdomen pelvis w con* [id number] 08/09/2022 10:57 AM RADIATION DOSE METRICS: Total DLP (mGy-cm): 1404.23 FINDINGS: Liver: Mild hepatomegaly is unchanged without obvious focal or diffuse abnormality. Gallbladder and bile ducts: Normal. No calcified stones. No ductal dilation. Pancreas: Normal. No ductal dilation. Spleen: Small accessory spleen again noted in the left upper quadrant. Adrenal glands: Normal. No mass. Kidneys and ureters: 4 mm hypodensity in the upper pole of the left kidney is too small to characterize, likely due to small cysts. 1.1 cm low-density cyst or angiomyolipoma is present in the lower pole of the left kidney, slightly enlarged from 08/09/2022. 6 mm stone of the right renal pelvis is new. 9 mm stone in the lower pole of the right kidney is unchanged. Mild hyperenhancement/thickening of the right renal pelvis. Stomach and bowel: Scattered sigmoid and other colonic diverticuli without acute inflammatory change. Appendix: Unremarkable appendix. Intraperitoneal space: Unremarkable. No free air. No significant fluid collection. Vasculature: Unremarkable. No abdominal aortic aneurysm. Lymph nodes: Unremarkable. No enlarged lymph nodes. Urinary bladder: Unremarkable as visualized. Reproductive: Incidentally noted 2.1 cm left ovarian cyst, new. Bones/joints: Unremarkable. No acute fracture. Soft tissues: Unremarkable. CT/CT abdomen pelvis w con* [id number] IMPRESSION: 1. New 6 mm right renal pelvic stone compared to 08/09/2022 CT. Mild renal pelvic urothelial thickening . Correlation for superimposed UTI/pyelitis suggested. Additional 9 mm right renal stones unchanged. No hydronephrosis. 2. Incidental and chronic findings include mild hepatomegaly, multiple small colonic diverticuli and 2.1 cm left ovarian cyst. COMMENTS: Consistent with the [employer]'s Incidental Findings Committee white paper (J Am Luther Radiol 2018): Any incidental renal lesion less than 1 cm or classified as too small to characterize, or any incidental cystic renal lesion characterized as simple-appearing, is likely benign. No follow-up imaging is recommended for these lesions per consensus recommendations based on imaging criteria.
[2024-03-20 16:50] LABS: HCG Qualitative Urine. Negative (Negative)
[2024-03-20] MEDS: cefTRIAXone 1,000 MG in sodium chloride 0.9% (plus) 50 ML 100 MG IV (17:08)
[2024-03-20] MEDS: iohexol 350 mg/mL 500 mL Btl (per mL) IV (17:09)
[2024-03-20 18:12] VITALS: BP 131/80; PULSE 64; RESP 14; TEMP 36.3; O2SAT 100
== END 2024-03-20 18:13 | disposition home or self-care (01) ==
PROVIDERS: Nurse Practitioner Family; Emergency Provider Emergency Medicine; PCP Family Medicine
DX: N20.1 Calculus of ureter (principal); Z87.891 Personal history of nicotine dependence; N39.0 Urinary tract infection, site not specified; Z87.440 Personal history of urinary (tract) infections
CPT/HCPCS: 74177; 76705; 80053; 81001; 81025; 83690; 85025; 87086; 96365; 96375; 99285; J0696; J1885; J2405; J7030; Q9967

== ENCOUNTER 2024-08-17 20:55 | Emergency (ER) | payer SELFPAY ==
[2024-08-17 21:01] VITALS: BP 155/93; PULSE 90; RESP 16; TEMP 36.7; O2SAT 99
--- NOTE | 2024-08-17 21:15 | W.ED.DENTAL ---
HPI - Dental/Oral General: Chief complaint: Dental/Oral Stated complaint: Tooth/Mouth Pain Time Seen by Provider: 08/17/24 20:59 Source: patient Mode of arrival: ambulatory Limitations: no limitations History of Present Illness: 29-year-old female states she has been having right lower dental pain. States she has a history of poor dentition was told before she did have that tooth pulled she has not seen a dentist states she has had increased pain some slight swelling over the last 2 days denies any fevers denies any vomiting. Associated symptoms: Denies fever(s) Related Data Home Medications Medication Instructions Recorded Confirmed albuterol sulfate 90 mcg/actuation 1 - 2 puff inhalation Q4H PRN 09/26/21 02/10/24 aerosol inhaler Shortness Of Breath fexofenadine 180 mg tablet 180 mg PO DAILY 09/26/21 02/10/24 (Loyda Allergy) venlafaxine 150 mg 150 mg PO QAM 11/27/21 02/10/24 capsule,extended release 24 hr cyclobenzaprine 10 mg tablet 10 mg PO Q8H PRN Muscle Spasm 08/09/22 02/10/24 isosorbide mononitrate 20 mg tablet 20 mg PO BID 07/14/23 02/10/24 topiramate 25 mg tablet (Topamax) 25 mg PO BID 07/14/23 02/10/24 pantoprazole 20 mg tablet,delayed 20 mg PO DAILY PRN 08/13/23 02/10/24 release Previous Rx's Medication Instructions Recorded folic acid 1 mg tablet 2 mg (2 x 1 mg) PO QAM #180 tabs 11/21/22 prednisone 5 mg tablet See Rx Instructions .Route DAILY 12/09/22 #45 tabs methotrexate sodium 2.5 mg tablet 15 mg (6 x 2.5 mg) PO .qweek #30 01/20/23 tabs fluticasone 500 mcg-salmeterol 50 1 inh inhalation BID #60 ea 02/10/24 mcg/dose blistr powdr for inhalation (Advair Diskus) tiotropium bromide 18 mcg capsule 1 cap inhalation DAILY #60 02/10/24 with inhalation device (Spiriva inhalations with HandiHaler) prednisone 10 mg tablet 10 mg PO DAILY #11 tabs 03/05/24 hydrocodone 5 mg-acetaminophen 325 1 tab PO Q6H PRN pain #20 tabs 03/20/24 mg tablet ondansetron 8 mg disintegrating 8 mg PO .q6 PRN nausea and 03/20/24 tablet vomiting #14 tabs polyethylene glycol 3350 17 17 g PO DAILY #510 grams 03/20/24 gram/dose oral powder (Miralax) tamsulosin 0.4 mg capsule (Flomax) 0.4 mg PO DAILY #30 caps 03/20/24 cephalexin 500 mg capsule 500 mg PO TID 7 days #21 caps 08/17/24 Allergies Allergy/AdvReac Type Severity Reaction Status Date / Time sumatriptan [From Imitrex] Allergy Severe THROAT Verified 08/17/24 21:05 SWELLING Review of Systems Const: Denies: fever(s), chills, body aches or change in appetite ENMT: Reports: mouth pain; Denies: throat pain or dental pain Card: Denies: chest pain Resp: Denies: dyspnea GI: Denies: abdominal pain, nausea, vomiting or diarrhea Musc: Denies: neck pain or back pain Skin/Breast: Denies: rash Neuro: Denies: headache(s) PFSH ED PFSH: Medical History Bloody diarrhea Right upper quadrant pain Recurrent UTI COVID Surgical History History of bunionectomy History of colonoscopy History of endoscopy History of tonsillectomy and adenoidectomy Family History Mother Hypertension Grandfather Colon cancer maternal Denies family history of Ovarian cancer Diabetes Heart disease Breast cancer Uterine cancer Thyroid disease Stroke Social History Smoking and tobacco/nicotine status: former use of tobacco/nicotine Quit status (tobacco/nicotine): has quit using Year quit tobacco: 2022 Former quit date comment: 1ppd X 12 years Alcohol intake: never Substance/Drug Use: never Marital status: Current occupational status: employed Physical Exam Const: COMMON NORMALS: no acute distress, patient oriented x3 and healthy appearing HENMT: COMMON NORMALS: normocephalic and atraumatic HEAD & SCALP: normocephalic and atraumatic OTHER: Poor dentition dental caries does have tenderness over right lower molar no abscess no trismus Eye: COMMON NORMALS: conjunctivae normal CONJUNCTIVA: Yes conjunctivae normal Neck/C-Spine: COMMON NORMALS: full ROM and supple Chest: COMMONS NORMALS: normal inspection of the chest Resp: COMMON NORMALS: normal respiratory effort Cardio: COMMON NORMALS: regular rate RATE: regular rate Extremity: COMMON NORMALS: normal to inspection and full ROM Neuro: COMMON NORMALS: patient oriented x3, moves all extremities and no focal motor deficits Psych: COMMON NORMALS: mental status grossly normal, Normal thought process present and cooperative THOUGHT PROCESS: Normal thought process present Skin: COMMON NORMALS: no rashes or lesions noted and no wounds GENERAL SKIN EXAM: no rashes or lesions noted Course Vital Signs: Vital signs: Vital Signs Temperature 98.0 F 08/17/24 21:01 Pulse Rate 90 08/17/24 21:01 Respiratory Rate 16 08/17/24 21:01 Blood Pressure 155/93 08/17/24 21:01 Pulse Oximetry 99 08/17/24 21:01 Oxygen Delivery Me thod Room Air 08/17/24 21:01 MDM - Dental/Oral Medical Decision Making Patient presents for dental pain she has no abscess or trismus we will start her on antibiotics she is to follow-up with dentist return if worsening. Medical Records I reviewed the patient's medical records. No radiology studies performed this visit Discharge Plan Discharge Patient Disposition: Home Clinical Impression: Toothache Condition: Stable Prescriptions: New cephalexin 500 mg capsule 500 mg PO TID 7 Days Qty: 21 0RF No Action fexofenadine [Loyda Allergy] 180 mg tablet 180 mg PO DAILY albuterol sulfate 90 mcg/actuation HFA aerosol inhaler 1 - 2 puff inhalation Q4H PRN (Reason: Shortness Of Breath) venlafaxine 150 mg capsule,extended release 24hr 150 mg PO QAM isosorbide mononitrate 20 mg tablet 20 mg PO BID Rx Instructions: give doses 7 hrs apart topiramate [Topamax] 25 mg tablet 25 mg PO BID pantoprazole 20 mg tablet,delayed release (DR/EC) 20 mg PO DAILY PRN folic acid 1 mg tablet 2 mg PO QAM Qty: 180 0RF fluticasone propion-salmeterol [Advair Diskus] 500-50 mcg/dose blister with device 1 inh inhalation BID Qty: 60 6RF Spiriva with HandiHaler 18 mcg capsule, w/inhalation device 1 cap inhalation DAILY Qty: 60 6RF Rx Instructions: puncture 1 cap using device; one dose = 2 inhalations prednisone 5 mg tablet See Rx Instructions .ROUTE DAILY Qty: 45 0RF Rx Instructions: take 1 - 1.5 tab daily daily; methotrexate sodium 2.5 mg tablet 15 mg PO .qweek Qty: 30 2RF prednisone 10 mg tablet 10 mg PO DAILY Qty: 11 0RF Rx Instructions: 2 tabs x 10 mg = 20 mg x 3 days 1 tab x 10 mg = 10 mg x 5 days cyclobenzaprine 10 mg tablet 10 mg PO Q8H PRN (Reason: Muscle Spasm) hydrocodone-acetaminophen 5-325 mg tablet 1 tab PO Q6H PRN (Reason: pain) Qty: 20 0RF ondansetron 8 mg tablet,disintegrating 8 mg PO .q6 PRN (Reason: nausea and vomiting) Qty: 14 0RF Flomax 0.4 mg capsule 0.4 mg PO DAILY Qty: 30 0RF Miralax 17 gram/dose powder 17 g PO DAILY Qty: 510 0RF Rx Instructions: Take 1 scoop daily while taking pain medications. Discharge Orders: Discharge ED (Routine); Ordered 08/17/24 Ordered By: Devendra Osorio Referrals: Duncan Raza MD [Primary Care Provider] - Discharge Diet: Advance as tolerated Discharge Activity: Resume usual activity Patient Instructions: Toothache (ED) Coding Level of Care Code ED Guest Services Lead for Brittany Barragan
[2024-08-17 21:16] VITALS: BP 168/91; PULSE 60; RESP 18; O2SAT 100
[2024-08-17] MEDS: cephALEXin 500 mg Capsule PO (21:20)
[2024-08-17] MEDS: HYDROcodone-acetaminophen 5-325 mg Tablet 1 TAB PO (21:20)
[2024-08-17 21:22] VITALS: BP 168/91; PULSE 66; O2SAT 100
== END 2024-08-17 21:23 | disposition home or self-care (01) ==
PROVIDERS: Emergency Provider Emergency Medicine; PCP Family Medicine
DX: K08.89 Other specified disorders of teeth and supporting structures (principal); K02.9 Dental caries, unspecified; Z87.891 Personal history of nicotine dependence
CPT/HCPCS: 99283

== ENCOUNTER 2024-09-17 21:22 | Emergency (ER) | payer SELFPAY ==
[2024-09-17 21:32] VITALS: BP 139/88; PULSE 83; RESP 18; TEMP 36.7; O2SAT 99; BMI 47.7
--- NOTE | 2024-09-17 21:39 | ECG_ITS ---
[facility] [facility] 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 Measurements Intervals [place] Rate: 82 P: 37 DE: 145 QRS: 11 QRSD: 111 T: -7 QT: 378 QTc: 442 Interpretive Statements SINUS RHYTHM POSSIBLE LEFT VENTRICULAR HYPERTROPHY Compared to ECG 08/13/2023 13:36:48 Sinus bradycardia no longer present Incomplete right bundle-branch block no longer present Electronically Signed On 09-18-2024 13:41:19 CDT by Jesica Gamez M.D. [id number]
--- NOTE | 2024-09-17 21:39 | XRR_ITS ---
PROCEDURE INFORMATION: Exam: XR Chest Exam date and time: 09/17/2024 9:58 PM Age: 29 years old Clinical indication: Chest pressure; Patient HX: Lt posterior chest/arm pain TECHNIQUE: Imaging protocol: Radiologic exam of the chest. Views: 1 view. COMPARISON: CT abdomen pelvis w con* [id number] 03/20/2024 5:04 PM FINDINGS: Lungs: Unremarkable. No consolidation. Pleural spaces: Unremarkable. No pleural effusion. No pneumothorax. Heart/Mediastinum: Unremarkable. No cardiomegaly. Bones/joints: Unremarkable. XR/XR chest 1V portable [id number] IMPRESSION: No acute findings.
[2024-09-17 21:53] LABS: Basophils % 0.3 %; Eosinophils # 0.4 10^3/uL (0.0-0.8); Eosinophils % 3.1 %; Hematocrit 36.5 % (36-47); Lymphocytes # 4.5 10^3/uL (0.8-4.8); Lymphocytes % 37.2 %; Mean Corpuscular HGB Conc 31.2 g/dL (30-55); Mean Corpuscular Hemoglobin 27.1 pg (27-33); Mean Corpuscular Volume 86.9 fl (85-98); Mean Platelet Volume 10.3 fL (7.4-10.4); Monocytes # 0.9 10^3/uL (0.2-0.9); Monocytes % 7.1 %; Neutrophils # 6.29 10^3/uL (1.8-7.7); Nucleated Red Blood Cells % 0 %; Platelet Count 335 10^3/cmm (157-399); Red Cell Distribution Width 13.5 % (12.1-15.1); White Blood Count 12.11 10^3/uL (3.29-11.43)
[2024-09-17 22:11] LABS: Troponin(5th) Baseline < 6 ng/L (0-10)
[2024-09-17 22:16] LABS: Anion Gap 11.1 (5-19); Blood Urea Nitrogen 14 mg/dL (6-20); Calcium 8.8 mg/dL (8.5-10.5); Carbon Dioxide 27 mmol/L (22-29); Chloride 104 mmol/L (98-107); Creatinine Clr Calc Pharmacy 197.9502; Glomerular Filtration Rate 116.6 mL/min (90-130); Glucose 94 mg/dL (65-115); Osmolality Calculated 286 mOsm/kg (285-295); Potassium 4.1 mmol/L (3.5-5.1); Sodium 138 mmol/L (136-145)
--- NOTE | 2024-09-17 23:39 | ECG_ITS ---
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 Measurements Intervals [place] Rate: 77 P: 36 AK: 146 QRS: 14 QRSD: 108 T: -7 QT: 400 QTc: 453 Interpretive Statements SINUS RHYTHM POSSIBLE LEFT VENTRICULAR HYPERTROPHY NONSPECIFIC T-WAVE ABNORMALITY Compared to ECG 08/13/2023 13:36:48 T-wave abnormality now present Sinus bradycardia no longer present Incomplete right bundle-branch block no longer present Electronically Signed On 09-18-2024 13:48:00 CDT by Jesica Gamez M.D. [email or web address]
[2024-09-18 00:18] LABS: Troponin 5 2HR Delta 0.00001 ABS# (0-10)
[2024-09-18] MEDS: ketorolac 30 mg/mL INJ 60 MG IM (00:36)
[2024-09-18] MEDS: dexamethasone 4 mg Tablet 10 MG PO (00:37)
[2024-09-18 00:38] VITALS: RESP 16; O2SAT 94
[2024-09-18] MEDS: oxyCODONE-APAP 5-325 mg Tablet 2 TAB PO (00:38)
[2024-09-18] MEDS: orphenadrine 30 mg/mL Inj 2 mL 60 MG IM (00:44)
--- NOTE | 2024-09-18 00:47 | W.ED.CHESTPA ---
HPI - Chest Pain General: Chief Complaint: Chest Pain Stated Complaint: chest pain Time Seen by Provider: 09/17/24 23:17 History of Present Illness: 29-year-old female complaining of upper back pain, neck pain on the left side, radiating into her left arm. She has worsening pain with turning her head, swallowing, or coughing. No fever. She does not necessarily recall an injury. No significant shortness of breath. Related Data Home Medications Medication Instructions Recorded Confirmed albuterol sulfate 90 mcg/actuation 1 - 2 puff inhalation Q4H PRN 09/26/21 02/10/24 aerosol inhaler Shortness Of Breath fexofenadine 180 mg tablet 180 mg PO DAILY 09/26/21 02/10/24 (L[facility]da Allergy) venlafaxine 150 mg 150 mg PO QAM 11/27/21 02/10/24 capsule,extended release 24 hr isosorbide mononitrate 20 mg tablet 20 mg PO BID 07/14/23 02/10/24 topiramate 25 mg tablet (Topamax) 25 mg PO BID 07/14/23 02/10/24 pantoprazole 20 mg tablet,delayed 20 mg PO DAILY PRN 08/13/23 02/10/24 release Previous Rx's Medication Instructions Recorded folic acid 1 mg tablet 2 mg (2 x 1 mg) PO QAM #180 tabs 11/21/22 prednisone 5 mg tablet See Rx Instructions .Route DAILY 12/09/22 #45 tabs methotrexate sodium 2.5 mg tablet 15 mg (6 x 2.5 mg) PO .qweek #30 01/20/23 tabs fluticasone 500 mcg-salmeterol 50 1 inh inhalation BID #60 ea 02/10/24 mcg/dose blistr powdr for inhalation (Advair Diskus) tiotropium bromide 18 mcg capsule 1 cap inhalation DAILY #60 02/10/24 with inhalation device (Spiriva inhalations with HandiHaler) prednisone 10 mg tablet 10 mg PO DAILY #11 tabs 03/05/24 ondansetron 8 mg disintegrating 8 mg PO .q6 PRN nausea and 03/20/24 tablet vomiting #14 tabs polyethylene glycol 3350 17 17 g PO DAILY #510 grams 03/20/24 gram/dose oral powder (Miralax) tamsulosin 0.4 mg capsule (Flomax) 0.4 mg PO DAILY #30 caps 03/20/24 cyclobenzaprine 10 mg tablet 10 mg PO Q8H PRN Muscle Spasm #20 09/18/24 tabs hydrocodone 5 mg-acetaminophen 325 1 tab PO Q6H PRN pain #10 tabs 09/18/24 mg tablet methylprednisolone 4 mg tablets in See Rx Instructions PO .COMPLEX 09/18/24 a dose pack (Medrol (Dionisio)) #21 ea Allergies Allergy/AdvReac Type Severity Reaction Status Date / Time sumatriptan [From Imitrex] Allergy Severe THROAT Verified 08/17/24 21:05 [facility]: Medical History Bloody diarrhea Right upper quadrant pain Recurrent UTI COVID Surgical History History of bunionectomy History of colonoscopy History of endoscopy History of tonsillectomy and adenoidectomy Family History Mother Hypertension Grandfather Colon cancer maternal Denies family history of Ovarian cancer Diabetes Heart disease Breast cancer Uterine cancer Thyroid disease Stroke Social History Smoking and tobacco/nicotine status: former use of tobacco/nicotine Quit status (tobacco/nicotine): has quit using Year quit tobacco: 2022 Former quit date comment: 1ppd X 12 years Alcohol intake: never Substance/Drug Use: never Marital status: Current occupational status: employed Female Reproductive History: Date of last menstrual period: 09/17/24 Physical Exam Const: COMMON NORMALS: no acute distress GENERAL APPEARANCE: cooperative; not ill appearing and not frail appearing HENMT: COMMON NORMALS: normocephalic, atraumatic and Normal external nose present HEAD & SCALP: normocephalic and atraumatic FACE & SINUS: normal facial exam and face symmetric NOSE: Normal external nose present Eye: COMMON NORMALS: Equal, round and reactive pupils present and EOMs intact bilaterally PUPIL: Yes Equal, round and reactive pupils present Neck/C-Spine: GENERAL: Yes trachea midline OTHER: She has tenderness to the base of the neck in the midline, and in the paraspinal musculature. Spurling's test is positive for radicular pain into the shoulder blade and down the left upper extremity. There are some tenderness over the trapezius, mid trapezius. Chest: CHEST: Yes Symmetrical chest wall rise Resp: COMMON NORMALS: normal respiratory effort, No retractions, No use of accessory muscles and clear to auscultation bilaterally AUSCULTATION: clear to auscultation bilaterally Cardio: COMMON NORMALS: regular rate and regular rhythm RATE: regular rate RHYTHM: regular rhythm GI: COMMON NORMALS: Normal to inspection, nondistended, normoactive bowel sounds present Extremity: COMMON NORMALS: no pedal edema Neuro: SAMANTHA COMA SCALE: document GCS findings [place] coma scale eye opening: Spontaneous [place] coma scale verbal response: Orientated [place] coma scale motor response: [place] commands [place] coma scale total score: 15 SENSORY EXAM: Yes extremities (intact) Psych: COMMON NORMALS: speech normal SPEECH: Yes normal speech Skin: COMMON NORMALS: no rashes or lesions noted GENERAL SKIN EXAM: no rashes or lesions noted Course Vital Signs: Vital signs: Vital Signs Temperature 98.1 F 09/17/24 21:32 Pulse Rate 72 09/18/24 01:40 Respiratory Rate 16 09/18/24 01:40 Blood Pressure 129/89 09/18/24 01:40 Pulse Oximetry 99 09/18/24 01:40 Oxygen Delivery Me thod Room Air 09/18/24 00:50 MDM - Chest Pain Medical Decision Making Examination reveals reproducible tenderness. Her Spurling's test is positive for left cervical radiculopathy. Her chest x-ray is negative. Her white blood cell count is 12. Other laboratory including 0-hour and 2-hour troponins are negative. Her EKG is normal. She will be discharged with medication for cervical radiculopathy. Lab Data 09/17/24 21:47 09/17/24 21:47 Radiology Impressions Chest X-Ray 09/17/24 21:39 IMPRESSION: No acute findings. Laboratory Results WBC 12.11 10^3/uL (3.29-11.43) H 09/17/24 21:47 RBC 4.20 10^6/uL (3.85-5.65) 09/17/24 21:47 Hgb 11.40 g/dL (11.27-16.99) 09/17/24 21:47 Hct 36.5 % (36-47) 09/17/24 21:47 MCV 86.9 fl (85-98) 09/17/24 21:47 MCH 27.1 pg (27-33) 09/17/24 21:47 MCHC 31.2 g/dL (30-55) 09/17/24 21:47 RDW 13.5 % (12.1-15.1) 09/17/24 21:47 Plt Count 335 10^3/cmm (157-399) 09/17/24 21:47 MPV 10.3 fL (7.4-10.4) 09/17/24 21:47 Neut % (Auto) 52.0 % 09/17/24 21:47 Lymph % (Auto) 37.2 % 09/17/24 21:47 [place]ard % (Auto) 7.1 % 09/17/24 21:47 Eos % (Auto) 3.1 % 09/17/24 21:47 Baso % (Auto) 0.3 % 09/17/24 21:47 Neut # (Auto) 6.29 10^3/uL (1.8-7.7) 09/17/24 21:47 Lymph # (Auto) 4.5 10^3/uL (0.8-4.8) 09/17/24 21:47 [place]ard # (Auto) 0.9 10^3/uL (0.2-0.9) 09/17/24 21:47 Eos # (Auto) 0.4 10^3/uL (0.0-0.8) 09/17/24 21:47 Baso # (Auto) 0.0 10^3/uL (0.0-0.1) 09/17/24 21:47 Nucleated RBC % (auto) 0 % 09/17/24 21:47 Nucleated RBCs # 0.0 /100WBC 09/17/24 21:47 Sodium 138 mmol/L (136-145) 09/17/24 21:47 Potassium 4.1 mmol/L (3.5-5.1) 09/17/24 21:47 Chloride 104 mmol/L (98-107) 09/17/24 21:47 Carbon Dioxide 27 mmol/L (22-29) 09/17/24 21:47 Anion Gap 11.1 (5-19) 09/17/24 21:47 BUN 14 mg/dL (6-20) 09/17/24 21:47 Creatinine 0.6 mg/dL (0.5-0.9) 09/17/24 21:47 GFR Calculation 116.6 mL/min (90-130) 09/17/24 21:47 Glucose 94 mg/dL (65-115) 09/17/24 21:47 Calculated Osmolality 286 mOsm/kg (285-295) 09/17/24 21:47 Calcium 8.8 mg/dL (8.5-10.5) 09/17/24 21:47 Troponin T Baseline < 6 ng/L (0-10) 09/17/24 21:47 Troponin T 120 Minute 6.00 ng/L (0-10) 09/17/24 23:54 Delta Troponin T 0.86949 ABS# (0-10) 09/17/24 23:54 All radiology interpretation(s) finalized by discharge Discharge Plan Discharge Patient Disposition: Home Clinical Impression: Cervicalgia, Cervical radiculopathy Condition: Stable Prescriptions: New methylprednisolone [Medrol (Dionisio)] 4 mg tablets,dose pack See Rx Instructions .ROUTE .COMPLEX Qty: 21 0RF Rx Instructions: orally per package directions Continued cyclobenzaprine 10 mg tablet 10 mg PO Q8H PRN (Reason: Muscle Spasm) Qty: 20 0RF hydrocodone-acetaminophen 5-325 mg tablet 1 tab PO Q6H PRN (Reason: pain) Qty: 10 0RF No Action fexofenadine [Loyda Allergy] 180 mg tablet 180 mg PO DAILY albuterol sulfate 90 mcg/actuation HFA aerosol inhaler 1 - 2 puff inhalation Q4H PRN (Reason: Shortness Of Breath) venlafaxine 150 mg capsule,extended release 24hr 150 mg PO QAM isosorbide mononitrate 20 mg tablet 20 mg PO BID Rx Instructions: give doses 7 hrs apart topiramate [Topamax] 25 mg tablet 25 mg PO BID pantoprazole 20 mg tablet,delayed release (DR/EC) 20 mg PO DAILY PRN folic acid 1 mg tablet 2 mg PO QAM Qty: 180 0RF fluticasone propion-salmeterol [Advair Diskus] 500-50 mcg/dose blister with device 1 inh inhalation BID Qty: 60 6RF Spiriva with HandiHaler 18 mcg capsule, w/inhalation device 1 cap inhalation DAILY Qty: 60 6RF Rx Instructions: puncture 1 cap using device; one dose = 2 inhalations prednisone 5 mg tablet See Rx Instructions .ROUTE DAILY Qty: 45 0RF Rx Instructions: take 1 - 1.5 tab daily daily; methotrexate sodium 2.5 mg tablet 15 mg PO .qweek Qty: 30 2RF prednisone 10 mg tablet 10 mg PO DAILY Qty: 11 0RF Rx Instructions: 2 tabs x 10 mg = 20 mg x 3 days 1 tab x 10 mg = 10 mg x 5 days ondansetron 8 mg tablet,disintegrating 8 mg PO .q6 PRN (Reason: nausea and vomiting) Qty: 14 0RF Flomax 0.4 mg capsule 0.4 mg PO DAILY Qty: 30 0RF Miralax 17 gram/dose powder 17 g PO DAILY Qty: 510 0RF Rx Instructions: Take 1 scoop daily while taking pain medications. Discharge Orders: Discharge ED (Routine); Ordered 09/18/24 Ordered By: Kushal Singh Referrals: Duncan Raza MD [Primary Care Provider] - 1-3 days Patient Instructions: Cervical Radiculopathy (ED), Opioid Safety, Pain Management Activity Restrictions/Additional Instructions: Medication as directed. See your doctor next week. Return for problems Stand Alone Forms: Work/School Release Coding Level of Care Code ED Tool Maker for Brittany Barragan
[2024-09-18 00:50] VITALS: BP 139/80; PULSE 79; RESP 16; O2SAT 94
[2024-09-18 01:40] VITALS: BP 129/89; PULSE 72; RESP 16; O2SAT 99
== END 2024-09-18 01:42 | disposition home or self-care (01) ==
PROVIDERS: Emergency Provider Emergency Medicine; PCP Family Medicine
DX: M54.12 Radiculopathy, cervical region (principal); Z87.891 Personal history of nicotine dependence
CPT/HCPCS: 36415; 71045; 80048; 84484; 85025; 93005; 96372; 99285; J1885; J2360; J8540

== ENCOUNTER → 2024-11-27 16:23 | Outpatient (BNVA) | payer OTHER, SELFPAY | PROVIDERS: PCP Family Medicine; Visit Provider Family Medicine | DX: J02.8 Acute pharyngitis due to other specified organisms (principal); B97.89 Other viral agents as the cause of diseases classified elsewhere | CPT/HCPCS: 87880 ==

== ENCOUNTER → 2025-03-16 10:43 | Outpatient (BNVA) | payer OTHER, SELFPAY | PROVIDERS: PCP Family Medicine; Visit Provider Podiatrist Foot & Ankle Surgery | DX: M79.672 Pain in left foot (principal); M65.972 Unspecified synovitis and tenosynovitis, left ankle and foot | CPT/HCPCS: 73630 ==

== ENCOUNTER 2025-09-28 07:13 | Outpatient (CLI) | payer OTHER, SELFPAY ==
--- NOTE | 2025-09-28 07:21 | US_ITS ---
WS: [id number] Complete ABDOMINAL ULTRASOUND HISTORY: HX OF NEPHROLITHIASIS/RUQ ABDOMINAL PAIN/R FLANK PAIN COMPARISON: 03/20/2024 CT and ultrasound. Liver: 20.3 cm in length. Moderately enlarged liver. Mild heterogeneity within the liver from areas of steatosis and sparing. No mass identified. Portal Vein: Normal hepatopetal flow with monophasic waveform. Gallbladder: Normally distended gallbladder with no stones or wall thickening. CBD: 0.5 cm Pancreas: Limited but as visualized unremarkable. Right kidney: 11.2 cm x 5.7 x 5.9 cm. Cortex:1.0 cm. Normal size and echogenicity. No hydronephrosis or mass. Left kidney: 10.8 cm x 5.7 cm x 6.4 cm. Cortex: 1.1 cm. Normal size and echogenicity. No hydronephrosis or mass. Spleen: 12.4 cm. Normal size and echogenicity. Aorta and IVC: Unremarkable abdominal aorta and IVC. US/US abdomen complete* [id number] Impression: 1. Normal gallbladder. 2. No renal obstruction. 3. Previously described RIGHT renal calcifications are not identified by ultra sound. 4. Moderate hepatomegaly with areas of steatosis.
== END 2025-09-28 07:14 | disposition home or self-care (01) ==
PROVIDERS: PCP Family Medicine; Visit Provider Nurse Practitioner Family
DX: R10.11 Right upper quadrant pain (principal); R16.0 Hepatomegaly, not elsewhere classified; K76.0 Fatty (change of) liver, not elsewhere classified
CPT/HCPCS: 76700